=== PATIENT | female | born 1970 | race Caucasian/White ===

== ENCOUNTER 2024-12-22 08:55 | Outpatient (CLI) | payer BC, SELFPAY ==
--- NOTE | ~2024-12-22 | MM_ITS ---
EXAMINATION: MM screening homer BI w gloria HISTORY: Screening mammogram TECHNIQUE: Craniocaudal and mediolateral oblique 3-D tomosynthesis images were obtained and synthetic 2-D images were generated. CAD analysis was submitted and interpreted. COMPARISON: No prior mammogram is available for comparison at this institution. BREAST PARENCHYMAL COMPOSITION:Not Dense. There are scattered areas of fibroglandular density. FINDINGS: No suspicious mass, calcification, or architectural distortion are identified in either agatha ast to suggest malignancy. There has been no suspicious interval change. IMPRESSION: No mammographic evidence of malignancy. Recommend routine screening mammography in one year. BI-RADS Category 1: Negative Reviewed, dictated and finalized at location .
--- OUTSIDE RECORDS SUMMARY | 2024-12-22 09:05 | XMS_ITS | Data Portability ---
Author Organization [place] - [facility] [employer], Main Office Address [address] [place] [address] Care Team Providers Care Corporate Development Associate Name Role Phone DANTE CELIS Primary Care Provider [phone] DANTE CELIS Referring Provider Assessment Encounter Date Assessment Date Assessment LastModified by Organization Details LastModified Time 11/19/2022 11/19/2022 EKG shows a normal sinus rhythm with normal intervals no acute changes Medically optimized for surgery [email or web address] Not available 12/09/2022 18:29:12 01/23/2023 01/23/2023 Continue current therapy Weight reduction discussed Parking placard appropriate at least for 6 months and I will initiate that Return to clinic 6 months Blood work reviewed [email or web address] Not available 01/23/2023 11:51:57 07/17/2023 07/17/2023 Continue current therapy losartan check blood work rtc 4 month cpm [email or web address] Not available 07/19/2023 19:28:38 10/12/2024 10/12/2024 This note is dictated and transcribed by [employer] Fluency Direct Software. Process Line Operator variances may occur. Despite proofreading, typographical errors may occur. Occasional wrong-word or '[id number]-[id number]' substitutions may have occurred due to the inherent limitations of voice recording. Read the chart carefully and recognize, using context, where substitutions have occurred. [email or web address] Not available 10/12/2024 12:15:24 Plan of Treatment Reminders Order Date Submit Date Provider Last Modified By Organization Details Last Modified Time Details Appointments None recorded. Lab glycohemogl obin, total, blood 2022 023 [facility], [address] [place], [address], 3 16:18:04 lipid panel, serum 2022 023 [facility], [address] [place], [address], 3 17:56:16 CBC w/ auto diff 2022 023 [facility], [address] [place], [address], 3 15:06:22 CMP, serum or plasma 2022 023 [facility], [address] [place], [address], 3 17:56:11 CBC w/ auto diff 2022 023 [facility], [address] [place] [address], [address], 3 14:28:56 CMP, serum or plasma 2022 023 [facility], [address] [place], [address], 3 14:44:30 Referral None recorded. Procedures None recorded. Surgeries None recorded. Imaging electrocard iogram 2022 023 [email or web address] [facility] [address] [facility], [address], [place], [address], 3 12:59:32 Medication Orders amlodipine 5 mg tablet 2022 023 [email or web address] [facility]/Pharmacy #[id number], [address] , [place], [address], 3 13:58:16 alprazolam 0.5 mg tablet 2022 023 [facility]/Pharmacy #[id number], [address], [place], [address], 3 19:29:41 metoprolol tartrate 25 mg tablet 2022 023 [email or web address] [facility]/Pharmacy #[id number], [address], [place], [address], 3 13:58:16 venlafaxine 75 mg tablet 2022 023 [email or web address] [facility]/Pharmacy #[id number], [address], [place], [address], 3 13:58:16 Patient TargetsNo targets recorded. Patient Instructions Encounter Date Encounter Id Patient Instructions Last Modified By Organization Details Last Modified Time 10/12/2024 [id number] diabetes foot health: care instructions [email or web address] Not available 10/12/2024 12:16:50 hammertoe, claw toe, mallet toe handout [email or web address] Not available 10/12/2024 12:16:51 Reason for Referral None Reported. Results Created Date Observation Date Name Description Value Unit Range Abnormal Flag Note LastModifiedBy Organization Detail LastModifiedTime 08/08/20 22 08/08/2022 LIPID PANEL cholesterol 190 mg/dL 140-19 9 [facility] NSUS RECOM MENDA TION FOR REGINALDO STERO L: ADULT CHILD LOW RISK: <200 <170 BORDE RLINE : <200- 239 ----- HIGH RISK: >240 >200 Not Available [facility] (Lab) [address] [place], [address], 08/08/2022 15:01:47 08/08/20 22 08/08/2022 LIPID PANEL triglyceride s 132 mg/dL 0-150 [facility] NSUS REPOR T RECOM MENDA TION FOR TRIGL YCERI TATIANA: ADULT CHILD LOW RISK: <150 ----- BODER LINE: 150-1 99 ----- HIGH RISK: >200 ----- Not Available [facility] (Lab) [address] [place], [address], 08/08/2022 15:01:47 08/08/20 22 08/08/2022 LIPID PANEL HDL cholesterol 59 mg/dL 40- Not Available [facility] (Lab) [address] [place], [address], 08/08/2022 15:01:47 08/08/20 22 08/08/2022 LIPID PANEL LDL cholesterol, calculated 105 mg/dL 0-130 [facility] NSUS REPOR T RECOM MENDA TIONS FOR LDL: ADULT CHILD LOW RISK <130 <110 (OPTI MAL LDL) <100 ----- BORDE RLINE : 130-1 59 ----- HIGH RISK: >160 >130 A TRIGL YCERI DE RESUL T >400 INVAL IDATE S THE CALCU LATIO N FOR LDL FRACT IONAT ION - THE LDL RESUL T WILL NOT BE REPOR ARISTEO. Not Available [facility] (Lab) [address] [place], [address], 08/08/2022 15:01:47 08/08/20 22 08/08/2022 COMPR EHENS JIM METAB OLIC PANEL sodium 138 mmol/ L 137-14 5 Not Available [facility] (Lab) [address] [place], [address], 08/08/2022 15:01:45 08/08/20 22 08/08/2022 COMPR EHENS JIM METAB OLIC PANEL potassium 3.9 mmol/ L 3.5-5. 1 Not Available [facility] (Lab) [address] [place], [address], 08/08/2022 15:01:45 08/08/20 22 08/08/2022 COMPR EHENS JIM METAB OLIC PANEL chloride 102 mmol/ L 98-107 Not Available [facility] (Lab) [address] [place], [address], 08/08/2022 15:01:45 08/08/20 22 08/08/2022 COMPR EHENS JIM METAB OLIC PANEL carbon dioxide 29 mmol/ L 22-30 Not Available [facility] (Lab) [address] [place], [address], 08/08/2022 15:01:45 08/08/20 22 08/08/2022 COMPR EHENS JIM METAB OLIC PANEL anion gap 10.9 mmol/ L 14-22 low Not Available [facility] (Lab) [address] [place], [address], 08/08/2022 15:01:45 08/08/20 22 08/08/2022 COMPR EHENS JIM METAB OLIC PANEL glucose 85 mg/dL 70-99 Not Available [facility] (Lab) [address] [place], [address], 08/08/2022 15:01:45 08/08/20 22 08/08/2022 COMPR EHENS JIM METAB OLIC PANEL BUN 11 mg/dL 8-19 Not Available [facility] (Lab) [address] [place], [address], 08/08/2022 15:01:45 08/08/20 22 08/08/2022 COMPR EHENS JIM METAB OLIC PANEL creatinine 0.55 mg/dL 0.66-1 .25 low Not Available [facility] (Lab) [address] [place], [address], 08/08/2022 15:01:45 08/08/20 22 08/08/2022 COMPR EHENS JIM METAB OLIC PANEL GFR >60 Refer ence Range : [place] GFR Healt hy Adult : >60 mL/mi n/1.7 3 m2 Chron ic Kidne y Disea se: 15-60 mL/mi n/1.7 3 m2 Kidne y Failu re: <15/m L/min /1.73 m2 www.n iddk. nih.g ov The MDRD study equat ion has not been valid ated in child lavell <18 years of age; pregn ant women ; the elder ly >85 years of age; or in some racia l or ethni c subgr oups, such as Hispa nics. Outsi de the valid ated vinayak eters , estim ated GFR is less accur ate, requi ring clini jorge luis judgm ent on a case- by-ca se basis . Clini jorge luis inter preta tion for other races and ages must be made by the clini masoud. The MDRD study equat ion has not been valid ated for the evalu ation of serum creat inine relat ed to nutri vasquez l statu s or medic ation usage . For perso ns <18 years of age, a pedia tric GFR calcu lator is avail able on the [facility] websi te: https ://kadie w.kid vickie.o rg/pr ofess ional s/kdo qi/gf r_cal culat or Not Available [facility] (Lab) [address] [place], [address], 08/08/2022 15:01:45 08/08/20 22 08/08/2022 COMPR EHENS JIM METAB OLIC PANEL alkaline phosphatase 81 U/L 38-126 Not Available [facility] (Lab) [address] [place], [address], 08/08/2022 15:01:45 08/08/20 22 08/08/2022 COMPR EHENS JIM METAB OLIC PANEL alanine aminotransfe rase 22 U/L 0-35 Not Available [facility] (Lab) [address] [place], [address], 08/08/2022 15:01:45 08/08/20 22 08/08/2022 COMPR EHENS JIM METAB OLIC PANEL aspartate aminotransfe rase 23 U/L 15-37 Not Available [facility] (Lab) [address] [place], [address], 08/08/2022 15:01:45 08/08/20 22 08/08/2022 COMPR EHENS JIM METAB OLIC PANEL bilirubin, total 0.40 mg/dL 0.20-1 .30 Not Available [facility] (Lab) [address] [place], [address], 08/08/2022 15:01:45 08/08/20 22 08/08/2022 COMPR EHENS JIM METAB OLIC PANEL calcium 9.3 mg/dL 8.4-10 .2 Not Available [facility] (Lab) [address] [place], [address], 08/08/2022 15:01:45 08/08/20 22 08/08/2022 COMPR EHENS JIM METAB OLIC PANEL total protein 7.2 g/dL 6.3-8. 2 Not Available [facility] (Lab) [address] [place], [address], 08/08/2022 15:01:45 08/08/20 22 08/08/2022 COMPR EHENS JIM METAB OLIC PANEL albumin 4.1 g/dL 3.4-5. 0 Not Available [facility] (Lab) [address] [place], [address], 08/08/2022 15:01:45 08/08/20 22 08/08/2022 COMPR EHENS JIM METAB OLIC PANEL globulin 3.1 g/dL 2.6-4. 2 Not Available [facility] (Lab) [address] [place], [address], 08/08/2022 15:01:45 08/08/20 22 08/08/2022 COMPR EHENS JIM METAB OLIC PANEL A/G ratio 1.3 ratio 1.0-2. 0 Not Available [facility] (Lab) [address] [place], [address], 08/08/2022 15:01:45 08/08/20 22 08/08/2022 CBC/C OMPLE TE BLD COUNT W/DIF F white blood cells 8.7 x10'3 /uL 4.2-10 .8 Not Available [facility] (Lab) [address] [facility], [address], 08/08/2022 14:47:38 08/08/20 22 08/08/2022 CBC/C OMPLE TE BLD COUNT W/DIF F red blood cells 4.51 x10'6 /uL 3.80-5 .20 Not Available [facility] (Lab) [address] [place], [address], 08/08/2022 14:47:38 08/08/20 22 08/08/2022 CBC/C OMPLE TE BLD COUNT W/DIF F hemoglobin 12.3 g/dL 12.0-1 5.6 Not Available [facility] (Lab) [address] [place], [address], 08/08/2022 14:47:38 08/08/20 22 08/08/2022 CBC/C OMPLE TE BLD COUNT W/DIF F hematocrit 39.1 % 35.7-4 5.7 Not Available [facility] (Lab) [address] [place], [address], 08/08/2022 14:47:38 08/08/20 22 08/08/2022 CBC/C OMPLE TE BLD COUNT W/DIF F mean red cell volume 86.7 fL 82.0-9 9.0 Not Available [facility] (Lab) [address] [place], [address], 08/08/2022 14:47:38 08/08/20 22 08/08/2022 CBC/C OMPLE TE BLD COUNT W/DIF F mean red cell hemoglobin 27.3 pg 27.0-3 3.0 Not Available [facility] (Lab) [address] [place], [address], 08/08/2022 14:47:38 08/08/20 22 08/08/2022 CBC/C OMPLE TE BLD COUNT W/DIF F mean RBC HGB concentratio n 31.5 g/dL 31.0-3 6.0 Not Available [facility] (Lab) [address] [place], [address], 08/08/2022 14:47:38 08/08/20 22 08/08/2022 CBC/C OMPLE TE BLD COUNT W/DIF F red cell distribution width 14.1 % 11.8-1 5.5 Not Available [facility] (Lab) [address] [place], [address], 08/08/2022 14:47:38 08/08/20 22 08/08/2022 CBC/C OMPLE TE BLD COUNT W/DIF F platelets 333 x10'3 /uL 150-40 0 Not Available [facility] (Lab) [address] [place], [address], 08/08/2022 14:47:38 08/08/20 22 08/08/2022 CBC/C OMPLE TE BLD COUNT W/DIF F mean platelet volume 10.6 fL 9.0-12 .4 Not Available [facility] (Lab) [address] [place], [address], 08/08/2022 14:47:38 08/08/20 22 08/08/2022 CBC/C OMPLE TE BLD COUNT W/DIF F neutrophils 54.6 % 39.0-7 2.0 Not Available [facility] (Lab) [address] [place], [address], 08/08/2022 14:47:38 08/08/20 22 08/08/2022 CBC/C OMPLE TE BLD COUNT W/DIF F lymphocytes 35.3 % 16.0-4 7.0 Not Available [facility] (Lab) [address] [place], [address], 08/08/2022 14:47:38 08/08/20 22 08/08/2022 CBC/C OMPLE TE BLD COUNT W/DIF F monocytes 7.6 % 5.0-12 .0 Not Available [facility] (Lab) [address] [place], [address], 08/08/2022 14:47:38 08/08/20 22 08/08/2022 CBC/C OMPLE TE BLD COUNT W/DIF F eosinophils 1.9 % 1.0-7. 0 Not Available [facility] (Lab) [address] [place], [address], 08/08/2022 14:47:38 08/08/20 22 08/08/2022 CBC/C OMPLE TE BLD COUNT W/DIF F basophils 0.5 % 0.0-2. 0 Not Available [facility] (Lab) [address] [place], [address], 08/08/2022 14:47:38 08/08/20 22 08/08/2022 CBC/C OMPLE TE BLD COUNT W/DIF F immature granulocytes 0.1 % 0.00-0 .50 Not Available [facility] (Lab) [address] [place], [address], 08/08/2022 14:47:38 08/08/20 22 08/08/2022 CBC/C OMPLE TE BLD COUNT W/DIF F neutrophils, absolute count 4.76 x10'3 /uL 1.5-8. 0 Not Available [facility] (Lab) [address] [place], [address], 08/08/2022 14:47:38 08/08/20 22 08/08/2022 CBC/C OMPLE TE BLD COUNT W/DIF F lymphocytes, absolute count 3.08 x10'3 /uL 1.07-3 .43 Not Available [facility] (Lab) [address] [place], [address], 08/08/2022 14:47:38 08/08/20 22 08/08/2022 CBC/C OMPLE TE BLD COUNT W/DIF F monocytes, absolute count 0.66 x10'3 /uL 0.29-0 .99 Not Available [facility] (Lab) [address] [place], [address], 08/08/2022 14:47:38 08/08/20 22 08/08/2022 CBC/C OMPLE TE BLD COUNT W/DIF F eosinophils, absolute count 0.17 x10'3 /uL 0.02-0 .53 Not Available [facility] (Lab) [address] [place], [address], 08/08/2022 14:47:38 08/08/20 22 08/08/2022 CBC/C OMPLE TE BLD COUNT W/DIF F basophils, absolute count 0.04 x10'3 /uL 0.01-0 .08 Not Available [facility] (Lab) [address] [place], [address], 08/08/2022 14:47:38 08/08/20 22 08/08/2022 CBC/C OMPLE TE BLD COUNT W/DIF F immature granulocytes ,absolute 0.01 x10'3 /uL 0.00-0 .05 Not Available [facility] (Lab) [address] [place], [address], 08/08/2022 14:47:38 08/08/20 22 08/08/2022 CBC/C OMPLE TE BLD COUNT W/DIF F nucleated red blood cells 0.0 % -0 Not Available [facility] (Lab) [address] [place], [address], 08/08/2022 14:47:38 08/08/20 22 08/08/2022 CBC/C OMPLE TE BLD COUNT W/DIF F NRBC# 0.00 x10'3 /uL Not Available [facility] (Lab) [address] [place], [address], 08/08/2022 14:47:38 11/20/19 23 11/19/2022 CBC/C OMPLE TE BLD COUNT W/DIF F white blood cells 8.3 x10'3 /uL 4.2-10 .8 Not Available [facility] (Lab) [address] [place], [address], 11/19/2022 14:28:55 11/20/19 23 11/19/2022 CBC/C OMPLE TE BLD COUNT W/DIF F red blood cells 4.27 x10'6 /uL 3.80-5 .20 Not Available [facility] (Lab) [address] [place], [address], 11/19/2022 14:28:55 11/20/1911/19/2022 CBC/C OMPLE TE BLD COUNT W/DIF F hemoglobin 11.8 g/dL 12.0-1 5.6 low Not Available [facility] (Lab) [address] [facility] [place], [address], 11/19/2022 14:28:55 11/20/19 23 11/19/2022 CBC/C OMPLE TE BLD COUNT W/DIF F hematocrit 37.4 % 35.7-4 5.7 Not Available [facility] (Lab) [address] [place], [address], 11/19/2022 14:28:55 11/20/1911/19/2022 CBC/C OMPLE TE BLD COUNT W/DIF F mean red cell volume 87.6 fL 82.0-9 9.0 Not Available [facility] (Lab) [address] [place], [address], 11/19/2022 14:28:55 11/20/19 23 11/19/2022 CBC/C OMPLE TE BLD COUNT W/DIF F mean red cell hemoglobin 27.6 pg 27.0-3 3.0 Not Available [facility] (Lab) [address] [place], [address], 11/19/2022 14:28:55 11/20/19 23 11/19/2022 CBC/C OMPLE TE BLD COUNT W/DIF F mean RBC HGB concentratio n 31.6 g/dL 31.0-3 6.0 Not Available [facility] (Lab) [address] [place], [address], 11/19/2022 14:28:55 11/20/19 23 11/19/2022 CBC/C OMPLE TE BLD COUNT W/DIF F red cell distribution width 13.0 % 11.8-1 5.5 Not Available [facility] (Lab) [address] [place], [address], 11/19/2022 14:28:55 11/20/19 23 11/19/2022 CBC/C OMPLE TE BLD COUNT W/DIF F platelets 329 x10'3 /uL 150-40 0 Not Available [facility] (Lab) [address] [place], [address], 11/19/2022 14:28:55 11/20/1911/19/2022 CBC/C OMPLE TE BLD COUNT W/DIF F mean platelet volume 10.9 fL 9.0-12 .4 Not Available [facility] (Lab) [address] [place], [address], 11/19/2022 14:28:55 11/20/19 23 11/19/2022 CBC/C OMPLE TE BLD COUNT W/DIF F neutrophils 50.0 % 39.0-7 2.0 Not Available [facility] (Lab) [address] [place], [address], 11/19/2022 14:28:55 11/20/19 23 11/19/2022 CBC/C OMPLE TE BLD COUNT W/DIF F lymphocytes 38.2 % 16.0-4 7.0 Not Available [facility] (Lab) [address] [place], [address], 11/19/2022 14:28:55 11/20/1911/19/2022 CBC/C OMPLE TE BLD COUNT W/DIF F monocytes 7.6 % 5.0-12 .0 Not Available [facility] (Lab) [address] [place], [address], 11/19/2022 14:28:55 11/20/1911/19/2022 CBC/C OMPLE TE BLD COUNT W/DIF F eosinophils 3.2 % 1.0-7. 0 Not Available [facility] (Lab) [address] [place], [address], 11/19/2022 14:28:55 11/20/19 23 11/19/2022 CBC/C OMPLE TE BLD COUNT W/DIF F basophils 0.6 % 0.0-2. 0 Not Available [facility] (Lab) [address] [place], [address], 11/19/2022 14:28:55 11/20/1911/19/2022 CBC/C OMPLE TE BLD COUNT W/DIF F immature granulocytes 0.4 % 0.00-0 .50 Not Available [facility] (Lab) [address] [place], [address], 11/19/2022 14:28:55 11/20/1911/19/2022 CBC/C OMPLE TE BLD COUNT W/DIF F neutrophils, absolute count 4.13 x10'3 /uL 1.5-8. 0 Not Available [facility] (Lab) [address] [place], [address], 11/19/2022 14:28:55 11/20/19 23 11/19/2022 CBC/C OMPLE TE BLD COUNT W/DIF F lymphocytes, absolute count 3.15 x10'3 /uL 1.07-3 .43 Not Available [facility] (Lab) [address] [place], [address], 11/19/2022 14:28:55 11/20/1911/19/2022 CBC/C OMPLE TE BLD COUNT W/DIF F monocytes, absolute count 0.63 x10'3 /uL 0.29-0 .99 Not Available [facility] (Lab) [address] [place], [address], 11/19/2022 14:28:55 11/20/19 23 11/19/2022 CBC/C OMPLE TE BLD COUNT W/DIF F eosinophils, absolute count 0.26 x10'3 /uL 0.02-0 .53 Not Available [facility] (Lab) [address] [place], [address], 11/19/2022 14:28:55 11/20/19 23 11/19/2022 CBC/C OMPLE TE BLD COUNT W/DIF F basophils, absolute count 0.05 x10'3 /uL 0.01-0 .08 Not Available [facility] (Lab) [address] [place], [address], 11/19/2022 14:28:55 11/20/19 23 11/19/2022 CBC/C OMPLE TE BLD COUNT W/DIF F immature granulocytes ,absolute 0.03 x10'3 /uL 0.00-0 .05 Not Available [facility] (Lab) [address] [place], [address], 11/19/2022 14:28:55 11/20/19 23 11/19/2022 CBC/C OMPLE TE BLD COUNT W/DIF F nucleated red blood cells 0.0 % -0 Not Available [facility] (Lab) [address] [place], [address], 11/19/2022 14:28:55 11/20/19 23 11/19/2022 CBC/C OMPLE TE BLD COUNT W/DIF F NRBC# 0.00 x10'3 /uL Not Available [facility] (Lab) [address] [place], [address], 11/19/2022 14:28:55 11/20/19 23 11/19/2022 COMPR EHENS JIM METAB OLIC PANEL sodium 139 mmol/ L 137-14 5 Not Available [facility] (Lab) [address] [place], [address], 11/19/2022 14:44:30 11/20/19 23 11/19/2022 COMPR EHENS JIM METAB OLIC PANEL potassium 4.2 mmol/ L 3.5-5. 1 Not Available [facility] (Lab) [address] [place], [address], 11/19/2022 14:44:30 11/20/19 23 11/19/2022 COMPR EHENS JIM METAB OLIC PANEL chloride 103 mmol/ L 98-107 Not Available [facility] (Lab) [address] [place], [address], 11/19/2022 14:44:30 11/20/19 23 11/19/2022 COMPR EHENS JIM METAB OLIC PANEL carbon dioxide 30 mmol/ L 22-30 Not Available [facility] (Lab) [address] [place], [address], 11/19/2022 14:44:30 11/20/19 23 11/19/2022 COMPR EHENS JIM METAB OLIC PANEL anion gap 10.2 mmol/ L 14-22 low Not Available [facility] (Lab) [address] [place], [address], 11/19/2022 14:44:30 11/20/19 23 11/19/2022 COMPR EHENS JIM METAB OLIC PANEL glucose 88 mg/dL 70-99 Not Available [facility] (Lab) [address] [place], [address], 11/19/2022 14:44:30 11/20/19 23 11/19/2022 COMPR EHENS JIM METAB OLIC PANEL BUN 15 mg/dL 8-19 Not Available [facility] (Lab) [address] [place], [address], 11/19/2022 14:44:30 11/20/19 23 11/19/2022 COMPR EHENS JIM METAB OLIC PANEL creatinine 0.59 mg/dL 0.66-1 .25 low Not Available [facility] (Lab) [address], [place], [address], 11/19/2022 14:44:30 11/20/19 23 11/19/2022 COMPR EHENS JIM METAB OLIC PANEL GFR >60 Refer ence Range : [place] GFR Healt hy Adult : >60 mL/mi n/1.7 3 m2 Chron ic Kidne y Disea se: 15-60 mL/mi n/1.7 3 m2 Kidne y Failu re: <15/m L/min /1.73 m2 www.n iddk. nih.g ov The MDRD study equat ion has not been valid ated in child lavell <18 years of age; pregn ant women ; the elder ly >85 years of age; or in some racia l or ethni c subgr oups, such as [facility] nics. Outsi de the valid ated vinayak eters , estim ated GFR is less accur ate, requi ring clini jorge luis judgm ent on a case- by-ca se basis . Clini jorge luis inter preta tion for other races and ages must be made by the clini masoud. The MDRD study equat ion has not been valid ated for the evalu ation of serum creat inine relat ed to nutri vasquez l statu s or medic ation usage . For perso ns <18 years of age, a pedia tric GFR calcu lator is avail able on the F websi te: https ://kadie w.donavan johnston.o rg/pr ofess ional s/kdo qi/gf r_cal culat or Not Available [facility] (Lab) [address] [place], [address], 11/19/2022 14:44:30 11/20/19 23 11/19/2022 COMPR EHENS JIM METAB OLIC PANEL alkaline phosphatase 79 U/L 38-126 Not Available [facility] (Lab) [address] [place], [address], 11/19/2022 14:44:30 11/20/19 23 11/19/2022 COMPR EHENS JIM METAB OLIC PANEL alanine aminotransfe rase 26 U/L 0-35 Not Available [facility] (Lab) [address] [place], [address], 11/19/2022 14:44:30 11/20/19 23 11/19/2022 COMPR EHENS JIM METAB OLIC PANEL aspartate aminotransfe rase 31 U/L 15-37 Not Available [facility] (Lab) [address] [place], [address], 11/19/2022 14:44:30 11/20/19 23 11/19/2022 COMPR EHENS JIM METAB OLIC PANEL bilirubin, total 0.50 mg/dL 0.20-1 .30 Not Available [facility] (Lab) [address] [place], [address], 11/19/2022 14:44:30 11/20/19 23 11/19/2022 COMPR EHENS JIM METAB OLIC PANEL calcium 9.3 mg/dL 8.4-10 .2 Not Available [facility] (Lab) [address] [place], [address], 11/19/2022 14:44:30 11/20/19 23 11/19/2022 COMPR EHENS JIM METAB OLIC PANEL total protein 7.3 g/dL 6.3-8. 2 Not Available [facility] (Lab) [address] [place], [address], 11/19/2022 14:44:30 11/20/19 23 11/19/2022 COMPR EHENS JIM METAB OLIC PANEL albumin 4.1 g/dL 3.4-5. 0 Not Available [facility] (Lab) [address] [facility] [place], [address], 11/19/2022 14:44:30 11/20/19 23 11/19/2022 COMPR EHENS JIM METAB OLIC PANEL globulin 3.2 g/dL 2.6-4. 2 Not Available [facility] (Lab) [address] [place], [address], 11/19/2022 14:44:30 11/20/19 23 11/19/2022 COMPR EHENS JIM METAB OLIC PANEL A/G ratio 1.3 ratio 1.0-2. 0 Not Available [facility] (Lab) [address] [place], [address], 11/19/2022 14:44:30 01/03/20 23 01/02/2023 COLOG UARD cologuard result reportable NEGATI VE negati ve NEGAT JIM TEST RESUL T. A negat jim Colog uard resul t indic ates a low likel ihood that a color ectal cance r (CRC) or advan stephane adeno ma (ramos omato us polyp s with more advan stephane pre-m align ant featu res) is prese nt. The chanc e that a perso n with a negat jim Colog uard test has a color ectal cance r is less than 1 in 1500 (nega tive predi ctive value >99.9 %) or has an advan stephane adeno ma is less than 5.3% (nega tive predi ctive value 94.7% ). These data are based on a prosp ectiv e cross -sect ional study of 10,00 0 indiv idual s at [facility] risk for color ectal cance r who were [place] with both Colog uard and colon oscop y. (Víctor Sanchez al, N Engl J Med 2014; 370(1 4):12 86-12 97) The clotilde l value (refe rence range ) for this assay is negat jim. COLOG UARD RE-SC REENI NG RECOM MENDA TION: Perio dic color ectal cance r [place] is an impor tant part of preve ntive healt hcare for asymp tomat ic indiv idual s at [facility] risk for color ectal cance r. Follo wing a negat jim Colog uard resul t, the Ameri can Cance r Socie ty and [employer] -[employer] Task Force [place] guide lines recom mend a Colog uard re-sc reeni ng inter kami of 3 years . Refer ences : Ameri can Cance r Socie ty Guide line for Color ectal Cance r Scree carina: https ://kadie w.can cer.o rg/ca ncer/ colon -rect al-ca ncer/ detec tion- diagn osis- stagi ng/ac s-rec ommen datio ns.ht ml.; Bill DK, Ilda jarvis CR, Lynda CaoK, Color ectal Cance r Scree carina: Recom menda tions for Physi cians and Patie nts from the U.S. Multi -Soci ety Task Force on Color ectal Cance r Scree carina , Am Kiley blackntrichard rolog y 2017; 112:1 016-1 030. TEST DESCR IPTIO N: [place] site algor ithmi c christina sis of stool DNA-b iomar kers with hemog lobin immun oassa y. Quant itati ve value s of indiv idual bioma rkers are not repor table and are not assoc iated with indiv idual bioma rker resul t refer ence range s. Colog uard is inten ded for color ectal cance r scree carina of adult s of eithe r sex, 45 years or older , who are at [facility] for color ectal cance r (CRC) . Colog uard has been appro tacos for use by the [place]. FDA. The perfo rmanc e of Colog uard was estab lishe d in a cross secti onal study of [facility] adult s aged 50-84 . Colog uard perfo rmanc e in patie nts ages 45 to 49 years was estim ated by maria de jesus-[place] galicia christina sis of near- age group s. Colon oscop ies perfo rmed for a posit jim resul t may find as the most clini efrain signi fican t lesio n: color ectal cance r [4.0% ], advan stephane adeno ma (incl uding sessi le laurent aristeo polyp s great er than or equal to 1cm diame ter) [20%] or non- advan stephane adeno ma [31%] ; or no color ectal neopl blanca [45%] . These estim ates are deriv ed from a prosp ectiv e cross -sect ional scree carina study of 0 indiv idual s at [facility] risk for color ectal cance r who were [place] with both Colog uard and colon oscop y. (Víctor Lane et al, N Engl J Med 2014; 370(1 4):12 86-12 97.) Colog uard may produ ce a false negat jim or false posit jim resul t (no color ectal cance r or preca ncero us polyp prese nt at colon oscop y follo w up). A negat jim Colog uard test resul t does not guara ntee the absen ce of CRC or advan stephane adeno ma (pre- cance r). The curre nt Colog uard scree carina inter kami is every 3 years . (Amer ican Cance r Socie ty and U.S. Multi -Soci ety Task Force ). Colog uard perfo rmanc e data in a 0 patie nt pivot al study using colon oscop y as the refer ence metho d can be acces sed at the follo wing locat ion: www.e xactl abs.c om/re sults . Addit ional descr iptio n of the Colog uard test proce ss, warni ngs and preca ution s can be found at www.c ologu sandi.august om. Not Available [facility] (Cologuard Orders Only) [address], [place], [address], 01/11/2023 18:28:02 07/17/20 23 07/17/2023 CBC/C OMPLE TE BLD COUNT W/DIF F white blood cells 7.0 x10'3 /uL 4.2-10 .8 Not Available [facility] (Lab) [address] [place], [address], 07/17/2023 15:06:22 07/17/20 23 07/17/2023 CBC/C OMPLE TE BLD COUNT W/DIF F red blood cells 4.52 x10'6 /uL 3.80-5 .20 Not Available [facility] (Lab) [address] [place], [address], 07/17/2023 15:06:22 07/17/20 23 07/17/2023 CBC/C OMPLE TE BLD COUNT W/DIF F hemoglobin 12.0 g/dL 12.0-1 5.6 Not Available [facility] (Lab) [address] [place], [address], 07/17/2023 15:06:22 07/17/20 23 07/17/2023 CBC/C OMPLE TE BLD COUNT W/DIF F hematocrit 39.0 % 35.7-4 5.7 Not Available [facility] (Lab) [address] [place], [address], 07/17/2023 15:06:22 07/17/20 23 07/17/2023 CBC/C OMPLE TE BLD COUNT W/DIF F mean red cell volume 86.3 fL 82.0-9 9.0 Not Available [facility] (Lab) [address] [place], [address], 07/17/2023 15:06:22 07/17/20 23 07/17/2023 CBC/C OMPLE TE BLD COUNT W/DIF F mean red cell hemoglobin 26.5 pg 27.0-3 3.0 low Not Available [facility] (Lab) [address] [place], [address], 07/17/2023 15:06:22 07/17/20 23 07/17/2023 CBC/C OMPLE TE BLD COUNT W/DIF F mean RBC HGB concentratio n 30.8 g/dL 31.0-3 6.0 low Not Available [facility] (Lab) [address] [place], [address], 07/17/2023 15:06:22 07/17/20 23 07/17/2023 CBC/C OMPLE TE BLD COUNT W/DIF F red cell distribution width 13.7 % 11.8-1 5.5 Not Available [facility] (Lab) [address] [place], [address], 07/17/2023 15:06:22 07/17/20 23 07/17/2023 CBC/C OMPLE TE BLD COUNT W/DIF F platelets 327 x10'3 /uL 150-40 0 Not Available [facility] (Lab) [address] [place], [address], 07/17/2023 15:06:22 07/17/20 23 07/17/2023 CBC/C OMPLE TE BLD COUNT W/DIF F mean platelet volume 11.4 fL 9.0-12 .4 Not Available [facility] (Lab) [address] [place], [address], 07/17/2023 15:06:22 07/17/20 23 07/17/2023 CBC/C OMPLE TE BLD COUNT W/DIF F neutrophils 46.0 % 39.0-7 2.0 Not Available [facility] (Lab) [address] [place], [address], 07/17/2023 15:06:22 07/17/20 23 07/17/2023 CBC/C OMPLE TE BLD COUNT W/DIF F lymphocytes 43.2 % 16.0-4 7.0 Not Available [facility] (Lab) [address] [place], [address], 07/17/2023 15:06:22 07/17/20 23 07/17/2023 CBC/C OMPLE TE BLD COUNT W/DIF F monocytes 7.5 % 5.0-12 .0 Not Available [facility] (Lab) [address] [place], [address], 07/17/2023 15:06:22 07/17/20 23 07/17/2023 CBC/C OMPLE TE BLD COUNT W/DIF F eosinophils 2.6 % 1.0-7. 0 Not Available [facility] (Lab) [address] [place], [address], 07/17/2023 15:06:22 07/17/20 23 07/17/2023 CBC/C OMPLE TE BLD COUNT W/DIF F basophils 0.6 % 0.0-2. 0 Not Available [facility] (Lab) [address] [place], [address], 07/17/2023 15:06:22 07/17/20 23 07/17/2023 CBC/C OMPLE TE BLD COUNT W/DIF F immature granulocytes 0.1 % 0.00-0 .50 Not Available [facility] (Lab) [address] [place], [address], 07/17/2023 15:06:22 07/17/20 23 07/17/2023 CBC/C OMPLE TE BLD COUNT W/DIF F neutrophils, absolute count 3.24 x10'3 /uL 1.5-8. 0 Not Available [facility] (Lab) [address] [place], [address], 07/17/2023 15:06:22 07/17/20 23 07/17/2023 CBC/C OMPLE TE BLD COUNT W/DIF F lymphocytes, absolute count 3.04 x10'3 /uL 1.07-3 .43 Not Available [facility] (Lab) [address] [place], [address], 07/17/2023 15:06:22 07/17/20 23 07/17/2023 CBC/C OMPLE TE BLD COUNT W/DIF F monocytes, absolute count 0.53 x10'3 /uL 0.29-0 .99 Not Available [facility] (Lab) [address] [place], [address], 07/17/2023 15:06:22 07/17/20 23 07/17/2023 CBC/C OMPLE TE BLD COUNT W/DIF F eosinophils, absolute count 0.18 x10'3 /uL 0.02-0 .53 Not Available [facility] (Lab) [address] [place], [address], 07/17/2023 15:06:22 07/17/20 23 07/17/2023 CBC/C OMPLE TE BLD COUNT W/DIF F basophils, absolute count 0.04 x10'3 /uL 0.01-0 .08 Not Available [facility] (Lab) [address] [place], [address], 07/17/2023 15:06:22 07/17/20 23 07/17/2023 CBC/C OMPLE TE BLD COUNT W/DIF F immature granulocytes ,absolute 0.01 x10'3 /uL 0.00-0 .05 Not Available [facility] (Lab) [address] [place], [address], 07/17/2023 15:06:22 07/17/20 23 07/17/2023 CBC/C OMPLE TE BLD COUNT W/DIF F nucleated red blood cells 0.0 % -0 Not Available [facility] (Lab) [address] [place], [address], 07/17/2023 15:06:22 07/17/20 23 07/17/2023 CBC/C OMPLE TE BLD COUNT W/DIF F NRBC# 0.00 x10'3 /uL Not Available [facility] (Lab) [address] [place], [address], 07/17/2023 15:06:22 07/17/20 23 07/17/2023 HEMOG LOBIN A1C HA1C 5.6 % 4.0-6. 0 Diabe silverio Scree carina Crite samia: <5.7% Consi stent with absen ce of diabe silverio 5.7-6 .4% Consi stent with incre ased risk for diabe silverio (pred iabet es) >OR=6 .5% Consi stent with diabe silverio REFER ENCE: Diabe silverio Care 2016, 39(Gunn ppl.1 ):s13 -s22 Not Available [facility] (Lab) [address] [place], [address], 07/17/2023 16:18:04 07/17/20 23 07/17/2023 COMPR EHENS JIM METAB OLIC PANEL sodium 138 mmol/ L 137-14 5 Not Available [facility] (Lab) [address] [place], [address], 07/17/2023 17:56:11 07/17/20 23 07/17/2023 COMPR EHENS JIM METAB OLIC PANEL potassium 4.6 mmol/ L 3.5-5. 1 Not Available [facility] (Lab) [address] [place], [address], 07/17/2023 17:56:11 07/17/20 23 07/17/2023 COMPR EHENS JIM METAB OLIC PANEL chloride 102 mmol/ L 98-107 Not Available [facility] (Lab) [address] [place], [address], 07/17/2023 17:56:11 07/17/20 23 07/17/2023 COMPR EHENS JIM METAB OLIC PANEL carbon dioxide 29 mmol/ L 22-30 Not Available [facility] (Lab) [address] [place], [address], 07/17/2023 17:56:11 07/17/20 23 07/17/2023 COMPR EHENS JIM METAB OLIC PANEL anion gap 11.6 mmol/ L 14-22 low Not Available [facility] (Lab) [address] [place], [address], 07/17/2023 17:56:11 07/17/20 23 07/17/2023 COMPR EHENS JIM METAB OLIC PANEL glucose 100 mg/dL 70-99 high Not Available [facility] (Lab) [address] [place], [address], 07/17/2023 17:56:11 07/17/20 23 07/17/2023 COMPR EHENS JIM METAB OLIC PANEL BUN 15 mg/dL 8-19 Not Available [facility] (Lab) [address] [place], [address], 07/17/2023 17:56:11 07/17/20 23 07/17/2023 COMPR EHENS JIM METAB OLIC PANEL creatinine 0.60 mg/dL 0.66-1 .25 low Not Available [facility] (Lab) [address] [place], [address], 07/17/2023 17:56:11 07/17/20 23 07/17/2023 COMPR EHENS JIM METAB OLIC PANEL GFR >60 Refer ence Range : [place] ge GFR Healt hy Adult : >60 mL/mi n/1.7 3 m2 Chron ic Kidne y Disea se: 15-60 mL/mi n/1.7 3 m2 Kidne y Failu re: <15/m L/min /1.73 m2 www.n iddk. nih.g ov The MDRD study equat ion has not been valid ated in child lavell <18 years of age; pregn ant women ; the elder ly >85 years of age; or in some racia l or ethni c subgr oups, such as Edelmira nics. Outsi de the valid ated vinayak eters , estim ated GFR is less accur ate, requi ring clini jorge luis judgm ent on a case- by-ca se basis . Clini jorge luis inter preta tion for other races and ages must be made by the clini masoud. The MDRD study equat ion has not been valid ated for the evalu ation of serum creat inine relat ed to nutri vasquez l statu s or medic ation usage . For perso ns <18 years of age, a pedia tric GFR calcu lator is avail able on the [facility] websi te: https ://kadie oreilly.donavan johnston.o rg/pr ofess ional s/kdo qi/gf r_cal culat or Not Available [facility] (Lab) [address] [place], [address], 07/17/2023 17:56:11 07/17/20 23 07/17/2023 COMPR EHENS JIM METAB OLIC PANEL alkaline phosphatase 91 U/L 38-126 Not Available [facility] (Lab) [address] [place], [address], 07/17/2023 17:56:11 07/17/20 23 07/17/2023 COMPR EHENS JIM METAB OLIC PANEL alanine aminotransfe rase 20 U/L 0-35 Not Available [facility] (Lab) [address] [place], [address], 07/17/2023 17:56:11 07/17/20 23 07/17/2023 COMPR EHENS JIM METAB OLIC PANEL aspartate aminotransfe rase 31 U/L 15-37 Not Available [facility] (Lab) [address] [place], [address], 07/17/2023 17:56:11 07/17/20 23 07/17/2023 COMPR EHENS JIM METAB OLIC PANEL bilirubin, total 0.40 mg/dL 0.20-1 .30 Not Available [facility] (Lab) [address] [place], [address], 07/17/2023 17:56:11 07/17/20 23 07/17/2023 COMPR EHENS JIM METAB OLIC PANEL calcium 9.7 mg/dL 8.4-10 .2 Not Available [facility] (Lab) [address] [place], [address], 07/17/2023 17:56:11 07/17/20 23 07/17/2023 COMPR EHENS JIM METAB OLIC PANEL total protein 7.7 g/dL 6.3-8. 2 Not Available [facility] (Lab) [address] [place], [address], 07/17/2023 17:56:11 07/17/20 23 07/17/2023 COMPR EHENS JIM METAB OLIC PANEL albumin 4.1 g/dL 3.4-5. 0 Not Available [facility] (Lab) [address] [place], [address], 07/17/2023 17:56:11 07/17/20 23 07/17/2023 COMPR EHENS JIM METAB OLIC PANEL globulin 3.6 g/dL 2.6-4. 2 Not Available [facility] (Lab) [address] [place], [address], 07/17/2023 17:56:11 07/17/20 23 07/17/2023 COMPR EHENS JIM METAB OLIC PANEL A/G ratio 1.1 ratio 1.0-2. 0 Not Available [facility] (Lab) [address] [place], [address], 07/17/2023 17:56:11 07/17/20 23 07/17/2023 LIPID PANEL cholesterol 226 mg/dL 140-19 9 high [facility] NSUS RECOM MENDA TION FOR REGINALDO STERO L: ADULT CHILD LOW RISK: <200 <170 BORDE RLINE : <200- 239 ----- HIGH RISK: >240 >200 Not Available [facility] (Lab) [address] [place], [address], 07/17/2023 17:56:16 07/17/20 23 07/17/2023 LIPID PANEL triglyceride s 147 mg/dL 0-150 [facility] EM[facility] NSUS REPOR T RECOM MENDA TION FOR TRIGL YCERI TATIANA: ADULT CHILD LOW RISK: <150 ----- BODER LINE: 150-1 99 ----- HIGH RISK: >200 ----- Not Available [facility] (Lab) [address] [place], [address], 07/17/2023 17:56:16 07/17/20 23 07/17/2023 LIPID PANEL HDL cholesterol 48 mg/dL 40- Not Available [facility] (Lab) [address] [place], [address], 07/17/2023 17:56:16 07/17/20 23 07/17/2023 LIPID PANEL LDL cholesterol, calculated 149 mg/dL 0-130 high [facility] NSUS REPOR T RECOM MENDA TIONS FOR LDL: ADULT CHILD LOW RISK <130 <110 (OPTI MAL LDL) <100 ----- BORDE RLINE : 130-1 59 ----- HIGH RISK: >160 >130 A TRIGL YCERI DE RESUL T >400 INVAL IDATE S THE CALCU LATIO N FOR LDL FRACT IONAT ION - THE LDL RESUL T WILL NOT BE REPOR ARISTEO. Not Available [facility] (Lab) [address] [place], [address], 07/17/2023 17:56:16 08/08/20 22 08/08/2022 elect peter grimes am No observ ation record ed. [id number] [facility] [address], [place], [address], 10/10/2022 06:08:16 08/08/20 [facility] No observ ation record ed. [id number] [facility] [address], [place], [address], 10/10/2022 06:08:16 11/20/19 23 [facility] No observ ation record ed. [email or web address] [facility] Internal [facility] [address], [place], [address], 11/19/2022 12:02:46 11/20/19 23 11/19/2022 [facility] am No observ ation record ed. BARCODE [facility] Internal Med [facility] [address], [place], [address], 11/19/2022 17:12:23 Result Notes None recorded. Problems Name Problem SNOMED Code Status Onset Date Resolution Date Notes Provider Name and Address Organization Details Recorded Time Insomnia 292898899 Active Not Available [facility] 3 07:49:05 Pain in buttock 140595675 Active 2021 Not Available [facility] 3 07:49:05 Vitamin D deficiency 10407159 Active Not Available [facility] 3 07:49:05 Dyslipidemia 381989215 Active Not Available [facility] 3 07:49:05 Type 2 diabetes mellitus 11229256 Active Not Available [facility] 3 07:49:05 Anxiety 55386277 Active Not Available [facility] 3 07:49:05 Essential hypertension 86561838 Active Not Available [facility] 3 07:49:05 Vaginitis 80490729 Active 2022 Not Available [facility] 3 07:49:05 Fatigue 08875597 Active 2022 Not Available [facility] 3 07:49:05 Hypercholeste rolemia 98920841 Active 2023 Hillary Ortez RN [facility], [facility] 4 16:47:48 Hammer toe 839445424 Active 2024 Wayne Capellan DPM [address], [place], [address] , [facility] [employer] 5 12:16:15 Problem Notes None recorded. Procedures Surgical History Date Name Laterality Status Provider Name and Address Organization Details Recorded Time Gastric Bypass completed Not Available [facility] 10/10/2022 05:56:43 completed Not Available [facility] 0 10/10/2022 05:56:43 Hysterectomy completed [facility] 10/10/2022 05:56:43 tonsilectomy/ramos oids completed Not Available [facility] 10/10/2022 05:56:43 Hip surgery completed Gabbie Siegel [employer] 10/12/2024 11:36:22 Imaging Results Imaging Date Name Status LastModified by Organization Details LastModified Time 08/08/2022 electrocardiogram completed MIGRATION. [id number] [facility] [address], [place], [address], 10/10/2022 06:08:16 08/08/2022 electrocardiogram completed MIGRATION. [id number] [facility] [address], [place], [address], 10/10/2022 06:08:16 11/19/2022 electrocardiogram completed [email or web address] [facility] [address], [place], [address], 11/19/2022 12:02:46 11/19/2022 electrocardiogram completed BARCODE [facility] [address], [place], [address], 11/19/2022 17:12:23 Procedure Notes None recorded. Medical Equipment None Reported. Allergies Allergen ID Allergen Name Allergen Category Reaction Reaction Severity Criticality Documentation Date Start Date Code Code System Note Provider Name and Address Organization Details Recorded Time 22299 atorvasta tin medicatio n Not available Not available Not available 10/12/2024 78212 RxNorm Gabbie fox, [facility] [employer] [facility] 5 11:32:57 11219 watermelo n preparati on food Not available Not available Not available 10/12/2024 34327 4 RxNorm Gabbie fox, [facility] [employer] [facility] [employer] 5 11:33:06 Medications Name Sig Start Date Stop Date Status Note LastModified by Organization Details LastModified Time celecoxib 200 mg capsule TAKE 1 CAPSULE BY MOUTH EVERY DAY NEEDED FOR PAIN active Not Available Not Available No t Available fluoxetine 40 mg capsule Take 1 capsule by mouth once daily active Not Available Not Available No t Available amoxicillin 500 mg capsule TAKE 4 CAPSULES BY MOUTH 1 HOUR PRIOR TO DENTAL APPOINTME NT active Not Available Not Available No t Available venlafaxine 75 mg tablet TAKE 1 TABLET BY MOUTH EVERY DAY active Not Available Not Available No t Available tizanidine 2 mg tablet TAKE 1 TABLET BY MOUTH TWICE A DAY NEEDED FOR MUSCLE SPASM active Not Available Not Available No t Available citalopram 40 mg tablet one tablet qd 02/01 completed Not Available Not Available Not Available atorvastati n 10 mg tablet TAKE 1 TABLET BY MOUTH EVERY DAY active Not Available Not Available No t Available azithromyci n 250 mg tablet TAKE 2 TABLETS BY MOUTH TODAY, THEN TAKE 1 TABLET DAILY FOR 4 DAYS DIRECTED active Not Available Not Available No t Available tizanidine 4 mg tablet Take 1 tablet twice a day by oral route as needed. 01/23 completed Not Available Not Available Not Available fluconazole 150 mg tablet TAKE 1 TABLET BY MOUTH 01/23 completed Not Available Not Available Not Available citalopram 10 mg tablet one tablet qd 02/01 completed Not Available Not Available Not Available hydrocodone 5 mg-acetamin ophen 325 mg tablet TAKE 1 TABLET BY MOUTH EVERY 6 HOURS NEEDED FOR PAIN. 11/06 completed Not Available Not Available Not Available ondansetron HCl 4 mg tablet TAKE 1 TABLET NEEDED BY ORAL ROUTE IN THE MORNING FOR 10 DAYS. active Not Available Not Available No t Available acetaminoph en 300 mg-codeine 30 mg tablet TAKE 1-2 TABLETS BY MOUTH EVERY 4-6 HOURS, NO MORE THAN 10/DAY active Not Available Not Available No t Available amlodipine 5 mg tablet TAKE 1 TABLET BY MOUTH EVERY DAY active Not Available Not Available No t Available hydrocodone 10 mg-acetamin ophen 325 mg tablet TAKE 1-2 TABLETS BY MOUTH EVERY 6-8 HOURS NEEDED. MAX 6 TABS/DAY 07/17 completed Not Available Not Available Not Available alprazolam 0.5 mg tablet TAKE 1 TABLET BY MOUTH TWICE A DAY active Not Available Not Available No t Available oxycodone-a cetaminophe n 10 mg-325 mg tablet TAKE 1-2 TABLETS BY MOUTH EVERY 6-8 HOURS NEEDED FOR 7 DAYS MAX 6 TABLETS/2 4 HOURS 01/23 completed Not Available Not Available Not Available OneTouch Ultra Test strips Take 1 strip every day by miscell. route as directed for 100 days. 11/06 completed Not Available Not Available Not Available benzonatate 100 mg capsule TAKE 1 CAPSULE BY MOUTH THREE TIMES A DAY NEEDED FOR COUGH FOR 10 DAYS 11/06 completed Not Available Not Available Not Available Bleph-10 10 % eye drops INSTILL 3 DROP INTO AFFECTED EYE(S) BY OPHTHALMI C ROUTE THREE TIMES DAILY*NO CONTACTS* * 11/03 completed Not Available Not Available Not Available hydrocodone 7.5 mg-acetamin ophen 325 mg tablet Take 1 tablet every 6 hours by oral route as needed. 11/19 completed Not Available Not Available Not Available cephalexin 500 mg capsule 02/01 completed Not Available Not Available Not Available venlafaxine 37.5 mg tablet Take 1 tablet every day by oral route. active Not Available Not Available No t Available gabapentin 100 mg capsule TAKE 1 CAPSULE BY MOUTH EVERYDAY AT BEDTIME active Not Available Not Available No t Available ergocalcife rol (vitamin D2) 1,250 mcg (50,000 unit) capsule Take 1 capsule every week by oral route. 10/04 completed Not Available Not Available Not Available methylpredn isolone 4 mg tablets in a dose pack TAKE 6 TABLETS ON DAY 1 DIRECTED ON PACKAGE AND DECREASE BY 1 TAB EACH DAY FOR A TOTAL OF 6 DAYS 08/08 completed Not Available Not Available Not Available celecoxib 100 mg capsule TAKE 1 CAPSULE BY MOUTH EVERY DAY WITH FOOD FOR 30 DAYS active Not Available Not Available No t Available amoxicillin 875 mg-potassiu m clavulanate 125 mg tablet TAKE 1 TABLET BY MOUTH EVERY 12 HOURS UNTIL GONE 11/06 completed Not Available Not Available Not Available escitalopra m 20 mg tablet Take 1 tablet every day by oral route as directed for 30 days. 10/04 completed Not Available Not Available Not Available ezetimibe 10 mg tablet TAKE 1 TABLET BY MOUTH EVERY DAY active Not Available Not Available No t Available metoprolol tartrate 25 mg tablet TAKE 1 TABLET BY MOUTH TWICE A DAY active Not Available Not Available No t Available multivitami n 2021 active Not Available Not Available Not Avai lable Bystolic 10 mg tablet Take 1 tablet every day by oral route. 10/04 completed Not Available Not Available Not Available B12 2021 active Not Available Not Available Not Avai lable Ozempic 1 mg/dose (4 mg/3 mL) subcutaneou s pen injector INJECT 1 MG SUBCUTANE OUSLY WEEKLY active Not Available Not Available No t Available BinaxNOW COVID-19 Ag Self Test kit TEST DIRECTED TODAY 04/30 completed Not Available Not Available Not Available Ozempic 2 mg/dose (8 mg/3 mL) subcutaneou s pen injector INJECT 2 MG EVERY WEEK BY SUBCUTANE OUS ROUTE. active Not Available Not Available No t Available Ozempic 0.25 mg or 0.5 mg (2 mg/3 mL) subcutaneou s pen injector INJECT 0.5MG UNDER THE SKIN ONCE WEEKLY FOR 4 WEEKS active Not Available Not Available No t Available Vitals Date Recorded Body mass index (BMI) Body height Oxygen saturation Oxygen saturation in Arterial blood by Pulse oximetry Heart rate Body temperature Body weight Systolic blood pressure Diastolic blood pressure Provider Name and Address Organization Details Last Updated DateTime 3 43.2 kg/m2 172.72 cm 97 % 97 % 78 /min 98 [degF] 809699. 23 g 136 mm[Hg] 90 mm[Hg] Not Available [facility] 3 06:01:09 Date Recorded Body height Body mass index (BMI) Body weight Body temperature Heart rate Systolic blood pressure Diastolic blood pressure Provider Name and Address Organization Details Last Updated DateTime 3 172.72 cm 44.6 kg/m2 962220. 56 g 98.5 [degF] 69 /min 140 mm[Hg] 78 mm[Hg] Hillary tejada RN [facility] 3 11:44:12 Date Recorded Body height Body mass index (BMI) Body weight Body temperature Heart rate Oxygen saturation Oxygen saturation in Arterial blood by Pulse oximetry Systolic blood pressure Diastolic blood pressure Provider Name and Address Organization Details Last Updated DateTime 3 172.72 cm 42.7 kg/m2 961605. 46 g 97.8 [degF] 77 /min 98 % 98 % 138 mm[Hg] 96 mm[Hg] Deanna Castillo RN [facility] 3 11:05:21 Date Recorded Body height Body mass index (BMI) Body weight Body temperature Heart rate Systolic blood pressure Diastolic blood pressure Provider Name and Address Organization Details Last Updated DateTime 3 172.72 cm 43.9 kg/m2 073737. 19 g 97.6 [degF] 74 /min 144 mm[Hg] 98 mm[Hg] ROSMERY Abel [facility] 3 12:15:36 Date Recorded Body height Body mass index (BMI) Body weight Heart rate Respiratory rate Oxygen saturation Oxygen saturation in Arterial blood by Pulse oximetry Systolic blood pressure Diastolic blood pressure Provider Name and Address Organization Details Last Updated DateTime 5 177.8 cm 35.9 kg/m2 970849. 09 g 84 /min 14 /min 99 % 99 % 141 mm[Hg] 113 mm[Hg] Gabbie Mcfadden [facility] 5 11:21:55 Social History Question Answer Notes LastModified by Organization Details LastModified Time Tobacco Smoking Status Former Smoker quit 2007 G[place], [facility] 11/19/2022 11:25:10 Do You Have An Advance Directive? No [id number] Information not available 10/10/2022 What Is Your Level Of Caffeine Consumption? Moderate [id number].030 [id number] Information not available 10/10/2022 In The 14 Days Before Symptom Onset, Have You Had Close Contact With A Laboratory-confi rmed COVID-19 While That Case Was Ill? No Information not available 11/19/2022 In The 14 Days Before Symptom Onset, Have You Had Close Contact With A Person Who Is Under Investigation For COVID-19 While That Person Was Ill? No Information not available 11/19/2022 What Type Of Diet Are You Following? REGULAR [id number] Information not available 10/10/2022 What Is The Highest Grade Or Level Of School You Have Completed Or The Highest Degree You Have Received? IQ31161-3 Information not available 11/19/2022 Have There Been Any Changes To Your Family Or Social Situation? No Information not available 11/19/2022 What Is The Fluoride Status Of Your Home? Unknown Information not available 11/19/2022 When Did You Quit Smoking? 11-15yearssincelast cigarette Information not available 11/19/2022 Are There Any Guns Present In Your Home? Yes Kept In Safe Information not available 11/19/2022 Do You Use Insect Repellent Routinely? No Information not available 11/19/2022 Where Do You Live? SingleLevelHouse Information not available 11/19/2022 Do You Have A Medical Power Of Physician Practice Coordinator? No Information not available 11/19/2022 What Was The Date Of Your Most Recent Tobacco Screening? 10/12/2024 Information not available 10/12/2024 Do You Have Any Pets? Yes Information not available 11/19/2022 What Is Your Relationship Status? [id number].030 [id number] Information not available 10/10/2022 Do You Use Your Seat Belt Or Car Seat Routinely? Yes Information not available 11/19/2022 Do You Have Smoke And Carbon Monoxide Detectors In Your Home? Yes Information not available 11/19/2022 Are You Passively Exposed To Smoke? No Information not available 11/19/2022 Are There Any Smokers In Your House? No Information not available 11/19/2022 What Types Of Sporting Activities Do You Participate In? None Information not available 11/19/2022 Do You Use Sunscreen Routinely? Yes Information not available 11/19/2022 Has Tobacco Cessation Counseling Been Provided? No Information not available 11/19/2022 Have You Recently Traveled Abroad? No Information not available 11/19/2022 Do You Have Any Dietary Restrictions? No Information not available 11/19/2022 Sex: Female Functional Status Question Answer Note LastModified by Organizat ion Details LastModified Time Do you use any illicit or recreational drugs? No Information not available 11/19/2022 Do you or have you ever used any other forms of tobacco or nicotine? No Information not available 11/19/2022 What is your level of alcohol consumption? None [id number] Information not available 10/10/2022 What is your exercise level? Occasional [id number] Information not available 10/10/2022 Mental Status Question Answer Note LastModified by Organization D etails LastModified Time Do you feel stressed (tense, restless, nervous, or anxious, or unable to sleep at night)? [id number] Information not available 11/19/2022 Family History Relationship Description Onset Age of this Age Resolved Age Notes LastModified by Organization Details LastModified Time Mother Essential hypertension [id number] Not available 10/10/2022 05:56:47 Father Essential hypertension MIGRATION.593 [id number] Not available 10/10/2022 05:56:47 Father Myelodysplas tic syndrome (clinical) deceas ed [id number].346 [id number] Not available 10/10/2022 05:56:47 Father Diabetes mellitus Not available 2024 11:34:59 Father Arthritis Not available 10/12/2024 11:35:18 Father Hypertensive disorder Not available 2024 11:35:44 Maternal Aunt Diabetes mellitus Not available 2024 11:34:59 Paternal Aunt Diabetes mellitus Not available 2024 11:34:59 Maternal Uncle Diabetes mellitus Not available 2024 11:34:59 Paternal Uncle Diabetes mellitus Not available 2024 11:34:59 Son Diabetes mellitus Not available 2024 11:34:59 Brother Diabetes mellitus Not available 2024 11:34:59 Mother Arthritis Not available 10/12/2024 11:35:18 Mother Hypertensive disorder Not available 2024 11:35:44 Maternal Grandmother Arthritis Not available 10/2024 11:35:18 Maternal Grandfather Arthritis Not available 10/2024 11:35:18 Unspecified Relation Hypertensive disorder Not available 2024 11:35:44 Unspecified Relation Hypertensive disorder Not available 2024 11:35:44 Medical History Condition Response NERVE DISEASE N BLINDNESS N RHEUMATIC FEVER N KIDNEY STONES N BLADDER PROBLEMS N MRSA N OTHER # 1 N POLIO N LUNG DISEASE/DISORDER N HISTORY OF DRUG ABUSE N RADIATION / CHEMOTHERAPY N COPD N Other # 2 N BLOOD DISEASES N EAR OR HEARING PROBLEMS N MUMPS N SHINGLES N BOWEL PROBLEMS N DEPRESSION (INCLUDING POST ) Y STROKE/TIA N ULCERS N BENIGN PROSTATIC HYPERPLASIA N MEASLES N HYPOTENSION N MYOCARDIAL INFARCTION N OBESITY Y GERD/NAUSEA N ANEURYSM N URINARY/BLADDER/KIDNEY PROBLEMS N CORONARY ARTERY DISEASE (CAD) N ADDICTION CONCERNS N ENDOMETRIOSIS N Impotence N USE OF BLOOD THINNERS N SKIN PROBLEMS N GASTROINTESTINAL DISORDER N PERIPHERAL VASCULAR DISEASE N MUSCLE,JOINT OR BONE PROBLEMS N GASTROINTESTINAL BLEEDING N BLOOD CLOTS N ASTHMA N CATARACTS N ERECTILE DYSFUNCTION N VARICOSITIES N GI PROBLEMS N Low Testosterone N INFERTILITY N AIDS/HIV N CHEMOTHERAPY / RADIATION N LIVER DISEASE N MALE HYPOGONADISM N HYPERTENSION Y Deficiency Y TOURETTE'S N ANXIETY DISORDER Y BLOOD TRANSFUSION N ANEMIA/BLOOD DISORDER N CHRONIC EAR INFECTIONS N BRONCHITIS Y TUBERCULOSIS N GLAUCOMA N FOOT PROBLEM N DIVERTICULITIS N CHICKENPOX N SLEEP APNEA N ALLERGIES/HAYFEVER Y INFECTIOUS DISEASE N HEART ARRHYTHMIA N PROSTATE N INSOMNIA Y HIGH CHOLESTEROL / HYPERLIPIDEMIA Y HYPERTHYROIDISM N EYE PROBLEMS N EDEMA N CHRONIC PAIN SYNDROME N HYPOTHYROIDISM N CAROTID BLOCKAGE N CONSTIPATION N BACK / NECK PROBLEMS N HAVE YOU BEEN HOSPITALIZED OR SEEN IN [facility] IN THE PAST YEAR ? Y ATHEROSCLEROSIS N BREAST PROBLEMS N DIALYSIS N ECZEMA N OSTEOPOROSIS N ARTHRITIS N APPENDICITIS N DIABETES, TYPE Y BAD TEETH N ENT N HEARTBURN / REFLUX N AUTISM SPECTRUM DISORDER (ASD) N HEPATITIS / LIVER DISEASE N GOUT N SLEEP DISORDER N ALZHEIMER'S DISEASE N Brain Problems N HERPES N DEMENTIA N HEADACHES/MIGRAINES N SEIZURES/EPILEPSY N VASCULAR DISEASE N PACEMAKER N Blood Disorder N DIZZINESS N HEART DISEASE/HEART PROBLEMS N KIDNEY DISEASE N MULTIPLE SCLEROSIS N CARDIAC ARRHYTHMIA N CANCER: SPECIFY N ATRIAL FIBRILLATION N Gall Stones N PULMONARY EMBOLISM N AUTOIMMUNE DISEASE N Gynecological HistoryNo gynecological history recorded. Obstetrics History GPAL:G 0 P 0 0 0 0 Immunizations Vaccine Type Date Status Note Provider Nam e and Address Organization Details Recorded Time COVID-19, mRNA, LNP-S, PF, 30 mcg/0.3 mL dose 1 completed Not Available [facility] 07/19/2023 07:49:06 COVID-19, mRNA, LNP-S, PF, 30 mcg/0.3 mL dose 1 completed Not Available [facility] 07/19/2023 07:49:05 Influenza, split virus, quadrivalent, preservative 9 completed Not Available [facility] 07/19/2023 07:49:05 Influenza, split virus, quadrivalent, preservative 8 completed Not Available [facility] 07/19/2023 07:49:05 Influenza, split virus, quadrivalent, preservative 7 completed Not Available [facility] 07/19/2023 07:49:05 Influenza, split virus, trivalent, preservative 1 completed Not Available [facility] 07/19/2023 07:49:06 Tdap 9 completed Not Available [facility] 07/19/2023 07:49:06 Past Encounters Encounter ID Performer Location Encounter Start Date Encounter Closed Date Diagnosis/Indication Diagnosis SNOMED-CT Code Diagnosis ICD10 Code Diagnosis Note [id number] Dante Celis MD [facility] Internal Med [facility] 15 2043 [facility] [address] [address] 11/06/2021 00:00:00 11/12/2021 14:47:49 [id number] Dante Celis MD [facility] Med [facility] 15 [address]43 [facility] [address] [address] 12/25/2021 00:00:00 12/25/2021 10:44:59 [id number] Dante Celis MD [facility] Internal Med [facility] [address] [place] [address] 1 04/30/2022 00:00:00 05/01/2022 22:59:20 [id number] Dante Celis MD [facility] Internal Med [facility] [address] [place], [place] [address]e., [place] [address] 1 07/11/2022 00:00:00 07/16/2022 16:57:39 [id number] Dante Celis MD [facility] Internal Med [facility] [address] [place], [place] [address]., [place] [address] 1 08/08/2022 00:00:00 08/09/2022 08:48:23 [id number] Dante Celis MD [facility] Internal Med [facility] [address] [place], [place] [address]., [place] [address] 1 09/03/2022 00:00:00 09/03/2022 10:58:56 [id number] Dante Celis MD [facility] Internal Med [facility] [address] [place], [place] [address]., [address] [address] 11/19/2022 11:22:32 11/19/2022 12:49:55 Pre-surgery testing 036946765 Z01.89 Dyslipidemia 602710674 E 78.5 Anxiety 14825450 F41.9 Essential hypertension 86880142 I10 [id number] Dante Celis MD [facility] Internal Med [facility] [address] [place], [place] [address]., [address] [address] 01/23/2023 10:45:32 01/23/2023 11:51:51 Dyslipidemia 839590005 E78.5 Essential hypertension 59349646 I10 Anxiety 20333273 F41.9 Type 2 dwain betes mellitus 22132860 E11.9 [id number] Dante Celis MD [facility] Internal Med [facility] [address] [place] [address] Ave[address] [address] 07/17/2023 10:51:55 07/17/2023 12:44:13 Fatigue 31093162 R53.83 Essential hypertension 25240800 I10 Type 2 dwain betes mellitus 03991274 E11.9 Renewal of prescription 050482713 Z76.0 Anxiety 32394587 F41.9 Dyslipidemia 136278004 E 78.5 [id number] Wayne Capellan DPM [facility] [address] [place] [address] 10/12/2024 11:11:47 10/14/2024 08:06:45 Type 2 diabetes mellitus 81169740 E11.9 Continue diabetic control per PCP recommenda tionsconti nue supportive shoe gearFollow -up 1 year Hammer toe 755162981 M20 .42 M20.41 educated on conditionP atient elects to continue with conservati ve optionsWil l continue monitor Health Concerns Section Related Observation LastModified by Organization Detai ls LastModified Time None Recorded Concern Status LastModified by Organization Details LastModified Time None Recorded Advance Directives Directive N: Payers Encounter Date Sequence Insurance Name Policy Number Policy Petty Covered Member ID Petty Member ID Guarantor Name 11/19/2022 1 [place] [id number] Shaun Karol Rodolfo [id number] Mariola Reynolds 01/23/2023 1 [place] [id number] Shaun Karol Rodolfo [id number] Mariola Karol Rodolfo 07/17/2023 1 [place] [id number] Shaun Reynolds [id number] Mariola Reynolds 10/12/2024 1 [place] [id number] Shaun Karol Rodolfo [id number] Mariola Karol Rodolfo Notes Date Note Type Note Provider Name and Address Organization Details Recorded Time 11/19/2022 text/html I have orthopedi c surgery Dante Celis MD [address] [place] [address], [place], [address], [facility] [employer] 12/09/2022 18:30:16 01/23/2023 text/html Hypertension no headache or dizziness. Diabetes fine since her gastric bypass. Dyslipidemia Try to follow low-fat diet. Anxiety is up a little bit good she has had problems with her hip placement. Hip pain seeing her orthopedist would like parking placard she is having some struggle still Dante Celis MD [address], [place], [address], [facility] 01/23/2023 11:52:12 07/17/2023 text/html Hypertension no headache or dizziness. Diabetes fine since her gastric bypass. Dyslipidemia Try to follow low-fat diet. Anxiety is up a little bit good she has had problems with her hip placement. Hip pain seeing her orthopedist would like parking placard she is having some struggle still Dante Celis MD [address], [place], [address], [facility] 07/19/2023 19:29:41 10/12/2024 text/html . Patient is a 54-year-old female with diabetes she presents to the office for diabetic foot care. Patient overall is doing well she denies any open wounds, foot pain, numbness and tingling in the feet. Patient states she does not have any difficulty with her daily activities. Patient does not have any intermittent claudication with walking or rest pain. Patient states she does have some mild hammertoes she denies any pain to these toes. Patient denies any calluses to the toes. Wayne Capellan DPM [address], [place], [address], [facility] 10/12/2024 12:17:08 OBGyn Episode No OBEpisode recorded.
--- OUTSIDE RECORDS SUMMARY | 2024-12-22 09:05 | XMS_ITS | Patient Health Record ---
Author Organization [facility] Address [address] [place] [address] [place] Brown [address] Care Team Providers Care Director Of Services Name Role Phone DANTE PIÑA MD Primary Care Provider Mauria Karthik Boudreaux Unavailable [phone] GUILLAUME PIÑA JASON Unavailable Unavailable ALLERGIES No Known Allergies REASON FOR REFERRAL No Information MEDICATIONS Medication SIG (Take, Route, Frequency, Duration) Notes Start Date End Date Status Celecoxib 100 MG 1 capsule with food Orally Once a day for 30 day(s) 07/19/2022 Active Norvasc 10 MG 1 tablet Orally Once a day for 30 day(s) Active Venlafaxine HCl 75 MG 1 tablet with food Orally Once a day for 30 day(s) Active Metoprolol Tartrate 25 MG 1 tablet with food Orally Twice a day for 30 day(s) Active tiZANidine HCl 2 MG 1 tablet as needed O rally 2 x day for muscle spasm for 30 days 09/17/2022 Active PROBLEMS Problem Type ICD Code Onset Dates Problem Status W/U Status Risk SNOMED Code Notes Problem Morbid (severe) obesity due to excess calories (E66.01) Active confirmed Morbid obesity (disorder) (340508148) Problem Lesion of sciatic nerve, right lower limb (G57.01) Active confirmed Sciatic nerve lesion (318794302) Problem Unilateral primary osteoarthritis, left hip (M16.12) Active confirmed Localized, primary osteoarthritis of the pelvic region and thigh (918150089) Problem Pain in left hip (M25.552) Active confirmed Pain of left hi p joint (finding) (640810247499027) Problem Spondylosis without myelopathy or radiculopathy, lumbar region (M47.816) Active confirmed Lumbosacral spondylosis without myelopathy (62600907) Problem Spondylosis without myelopathy or radiculopathy, lumbosacral region (M47.817) Active confirmed Lumbosacral spondylosis without myelopathy (disorder) (23505874) Problem Other intervertebral disc degeneration, lumbar region (M51.36) Active confirmed Degeneration of lumbar intervertebral disc (12177930) Problem Other intervertebral disc degeneration, lumbosacral region (M51.37) Active confirmed Degeneration of lumbosacral intervertebral disc (97276562) Problem Radiculopathy, lumbar region (M54.16) Active confirmed Lumbar radiculopathy (837078756) Problem Radiculopathy, lumbosacral region (M54.17) Active confirmed Lumbosacral radiculopathy (9127462) Problem Sciatica, unspecified side (M54.30) Active confirmed Sciatica (22235887) Problem Sciatica, right side (M54.31) Active confirmed Right side sciatica (789926304042240) Problem Sciatica, left side (M54.32) Active confirmed Left side sciatica (240180696608553) Problem Trochanteric bursitis, left hip (M70.62) Active confirmed Trochanteric bursitis of left hip (000850654451482) Problem Osseous stenosis of neural canal of lumbar region (M99.33) Active confirmed Spinal stenosis of lumbar region (66431967) PLAN OF TREATMENT Pending Test Test Name Order Date MRI : Lumbar Spine without contrast (721 48) 07/19/2022 Insurance Providers Payer Name Payer Address Payer Phone Subscriber Number Group Number Insured Name Patient Relationship to Insured Coverage Start Date Coverage End Date [facility] [address] [place] [address] [phone] [id number] MACKENZIE HERNANDEZ Self - patient is the insured MEDICAL (GENERAL) HISTORY Medical History History ICD Code Diabetes type 2 Anxiety Insomnia Hypertension Depression Surgical History Surgery Date(Month/Year) Gastric bypass 2010
--- OUTSIDE RECORDS SUMMARY | 2024-12-22 09:06 | XMS_ITS | Data Portability ---
[facility] [address] [place] [address] Care Team Providers Care Elevator Installer Name Role Phone DANTE CELIS Primary Care Provider Assessment Encounter Date Assessment Date Assessment LastModified by Organization Details LastModified Time 03/13/2024 03/13/2024 healthy lifestyle care instructions given. Blood work has been ordered. Ozempic. Celebrex. Follow up in 3 months. She will monitor blood pressure at home also I think that as we get some of this weight off that should help as well [email or web address] Not available 03/13/2024 15:02:45 06/16/2024 06/16/2024 we will continue current therapy we will follow up with me in 4 months' time all questions have been answered [email or web address] Not available 06/21/2024 13:56:51 09/18/2024 09/18/2024 continue current therapy check blood work some Zofran to use for nausea secondary to GLP 1 it is mild and she only gets it the 1st day or 2 after her injection if it becomes severe she will let me know flu shot Prevnar 20 blood work follow up in 4 months. Mammogram. Podiatry for foot exam [email or web address] Not available 09/19/2024 21:17:38 Plan of Treatment Reminders Order Date Submit Date Provider Last Modified By Organization Details Last Modified Time Details Appointments ANY 15 2024 09:30A M Dante Celis MD Not available Not available Not available Lab albumi n/crea binuine , mass ratio, urine 2024 025 [facility], [address] [facility] [facility] [address] [facility], [address], [place], [address], 09/19/2024 10:19:43 HbA1c (hemog lobin A1c), blood 2024 025 [facility], [address], [address], [place], [address], 09/19/2024 10:19:47 lipid panel, serum 2024 025 [facility], [address], [address], [place], [address], 09/19/2024 10:19:44 CBC w/ auto diff 2024 025 [facility], [address], [address], [place], [address], 09/19/2024 10:19:48 CMP, serum or plasma 2024 025 [facility], [address], [address], [place], [address], 09/19/2024 10:19:45 HbA1c (hemog lobin A1c), blood 2023 024 [facility], [address], [address], [place], [address], 03/14/2024 08:27:40 CMP, serum or plasma 2023 024 [facility], [address], [address], [place], [address], 03/14/2024 08:27:39 lipid panel, serum 2023 024 [facility], [address], [address], [place], [address], 03/14/2024 08:27:39 CBC w/ auto diff 2023 024 [facility], [address] [place] [address], [address], [place], [address], 03/14/2024 08:27:41 T4, free, serum 2023 024 [facility], [address] [place] [address], [address], [place], [address], 03/14/2024 08:27:42 TSH, ultra- sensit kolby, serum 2023 024 [facility], [address] [place] [address], [address], [place], [address], 03/14/2024 08:27:40 T3, free, serum or plasma 2023 024 [facility], [address] [place] [address], [address], [place], [address], 03/14/2024 08:27:41 Referral podiat rist referr al 2024 025 [facility], [address] [facility], [place], [address], 12/08/2024 15:21:44 Procedures None record ed. Surgeries None record ed. Imaging MAMMO, screen ing, digita l, bilate ral [address] [facility] (Imaging), [address] [facility] [address], [place], [address], 12/10/2024 15:01:20 Medication Orders Ozempi c 0.25 mg or 0.5 mg (2 mg/3 mL) subcut aneous pen inject or 2023 024 [facility][id number], [address], [place], [address], 10/15/2024 12:10:57 Celebr ex 200 mg capsul e 2023 024 [email or web address] [id number], [address], [place], [address], 03/13/2024 11:11:43 Patient TargetsNo targets recorded. Patient Instructions Encounter Date Encounter Id Patient Instructions Last Modified By Organization Details Last Modified Time 03/13/2024 [id number] A healthy lifestyle: care instructions [email or web address] Not available 03/13/2024 11:08:36 06/16/2024 [id number] A healthy lifestyle: care instructions [email or web address] Not available 06/21/2024 13:57:09 Reason for Referral Appointment Specialist Referral for Type 2 diabetes mellitus Referring Physician: Dante Celis, Internal Medicine, Encounter Date: 09/18/2024 Results Created Date Observation Date Name Description Value Unit Range Abnormal Flag Note LastModifiedBy Organization Detail LastModifiedTime 03/13/20 24 03/14/2024 LIPID PANEL cholesterol, total 218 mg/dL 100-19 9 above high normal Not Available [facility] ([facility]) [address] [facility], [place], [address], 03/14/2024 08:27:38 03/13/20 24 03/14/2024 LIPID PANEL triglyceride s 146 mg/dL 0-149 Not Available [facility] ([facility]) [address] [place], [address], 03/14/2024 08:27:38 03/13/20 24 03/14/2024 LIPID PANEL HDL cholesterol 52 mg/dL >39 Not Available [facility] ([facility]) [address] [place], [address], 03/14/2024 08:27:38 03/13/20 24 03/14/2024 LIPID PANEL VLDL cholesterol jorge luis 26 mg/dL 5-40 Not Available [facility] ([facility]) [address] [place], [address], 03/14/2024 08:27:38 03/13/20 24 03/14/2024 LIPID PANEL LDL chol calc ([facility]) 140 mg/dL 0-99 above high normal Not Available [facility] ([facility]) [address] [facility], [place], [address], 03/14/2024 08:27:38 03/13/20 24 03/14/2024 COMP. METAB OLIC PANEL (14) glucose 94 mg/dL 70-99 Not Available [facility] ([facility]) [address] [facility], [place], [address], 03/14/2024 08:27:39 03/13/20 24 03/14/2024 COMP. METAB OLIC PANEL (14) BUN 10 mg/dL 6-24 Not Available [facility] ([facility]) [address] [place], [address], 03/14/2024 08:27:39 03/13/20 24 03/14/2024 COMP. METAB OLIC PANEL (14) creatinine 0.63 mg/dL 0.57-1 .00 Not Available [facility] ([facility]) [address] [facility], [place], [address], 03/14/2024 08:27:39 03/13/20 24 03/14/2024 COMP. METAB OLIC PANEL (14) eGFR 105 mL/mi n/1.7 3 >59 Not Available [facility] ([facility]) [address] [place], [address], 03/14/2024 08:27:39 03/13/20 24 03/14/2024 COMP. METAB OLIC PANEL (14) BUN/creatini ne ratio 16 9-23 Not Available [facility] ([facility]) [address] [place], [address], 03/14/2024 08:27:39 03/13/20 24 03/14/2024 COMP. METAB OLIC PANEL (14) sodium 141 mmol/ L 134-14 4 Not Available [facility] ([facility]) [address] [facility] [place], [address], 03/14/2024 08:27:39 03/13/20 24 03/14/2024 COMP. METAB OLIC PANEL (14) potassium 5.4 mmol/ L 3.5-5. 2 above high normal Not Available [facility] ([facility]) [address] [facility] [place], [address], 03/14/2024 08:27:39 03/13/20 24 03/14/2024 COMP. METAB OLIC PANEL (14) chloride 102 mmol/ L 96-106 Not Available [facility] ([facility]) [address] [facility] [place], [address], 03/14/2024 08:27:39 03/13/20 24 03/14/2024 COMP. METAB OLIC PANEL (14) carbon dioxide, total 25 mmol/ L 20-29 Not Available [facility] ([facility]) [address] [facility] [place], [address], 03/14/2024 08:27:39 03/13/20 24 03/14/2024 COMP. METAB OLIC PANEL (14) calcium 9.2 mg/dL 8.7-10 .2 Not Available [facility] ([facility]) [address] [facility] [place], [address], 03/14/2024 08:27:39 03/13/20 24 03/14/2024 COMP. METAB OLIC PANEL (14) protein, total 7.1 g/dL 6.0-8. 5 Not Available [facility] ([facility]) [address] [facility] [place], [address], 03/14/2024 08:27:39 03/13/20 24 03/14/2024 COMP. METAB OLIC PANEL (14) albumin 4.1 g/dL 3.8-4. 9 Not Available [facility] ([facility]) [address] [facility] [place], [address], 03/14/2024 08:27:39 03/13/20 24 03/14/2024 COMP. METAB OLIC PANEL (14) globulin, total 3.0 g/dL 1.5-4. 5 Not Available [facility] ([facility]) [address] [facility] [place], [address], 03/14/2024 08:27:39 03/13/20 24 03/14/2024 COMP. METAB OLIC PANEL (14) bilirubin, total 0.3 mg/dL 0.0-1. 2 Not Available [facility] ([facility]) [address] [facility] [place], [address], 03/14/2024 08:27:39 03/13/20 24 03/14/2024 COMP. METAB OLIC PANEL (14) alkaline phosphatase 121 IU/L 44-121 Not Available [facility]) [address] [facility] [place], [address], 03/14/2024 08:27:39 03/13/20 24 03/14/2024 COMP. METAB OLIC PANEL (14) AST (SGOT) 27 IU/L 0-40 Not Available [facility] ([facility]) [address] [facility] [place], [address], 03/14/2024 08:27:39 03/13/20 24 03/14/2024 COMP. METAB OLIC PANEL (14) ALT (SGPT) 21 IU/L 0-32 Not Available [facility] ([facility]) [address] [place], [address], 03/14/2024 08:27:39 03/13/20 24 03/14/2024 HEMOG LOBIN A1C hemoglobin A1C 5.9 % 4.8-5. 6 above high normal Predi abete s: 5.7 - 6.4 Diabe silverio: >6.4 Glyce abner contr ol for adult s with diabe silverio: <7.0 Not Available [facility] ([facility]) [address] [facility], [place], [address], 03/14/2024 08:27:40 03/13/20 24 03/14/2024 TSH TSH 3.170 uIU/m L 0.450- 4.500 Not Available [facility] ([facility]) [address] [facility], [place], [address], 03/14/2024 08:27:40 03/13/20 24 03/14/2024 CBC WITH DIFFE RENTI AL/PL ATELE T WBC 8.2 x10e3 /uL 3.4-10 .8 Not Available [facility] ([facility]) [address] [facility], [place], [address], 03/14/2024 08:27:41 03/13/20 24 03/14/2024 CBC WITH DIFFE RENTI AL/PL ATELE T RBC 4.78 x10e6 /uL 3.77-5 .28 Not Available [facility] ([facility]) [address] [facility], [place], [address], 03/14/2024 08:27:41 03/13/20 24 03/14/2024 CBC WITH DIFFE RENTI AL/PL ATELE T hemoglobin 13.7 g/dL 11.1-1 5.9 Not Available [facility] ([facility]) [address] [place], [address], 03/14/2024 08:27:41 03/13/20 24 03/14/2024 CBC WITH DIFFE RENTI AL/PL ATELE T hematocrit 42.9 % 34.0-4 6.6 Not Available [facility] ([facility]) [address] [facility], [place], [address], 03/14/2024 08:27:41 03/13/20 24 03/14/2024 CBC WITH DIFFE RENTI AL/PL ATELE T MCV 90 fL 79-97 Not Available [facility] ([facility]) [address] [facility], [place], [address], 03/14/2024 08:27:41 03/13/20 24 03/14/2024 CBC WITH DIFFE RENTI AL/PL ATELE T MCH 28.7 pg 26.6-3 3.0 Not Available [facility] ([facility]) [address] [facility], [place], [address], 03/14/2024 08:27:41 03/13/20 24 03/14/2024 CBC WITH DIFFE RENTI AL/PL ATELE T MCHC 31.9 g/dL 31.5-3 5.7 Not Available [facility] ([facility]) [address] [facility], [place], [address], 03/14/2024 08:27:41 03/13/20 24 03/14/2024 CBC WITH DIFFE RENTI AL/PL ATELE T RDW 13.4 % 11.7-1 5.4 Not Available [facility] ([facility]) [address] [facility], [place], [address], 03/14/2024 08:27:41 03/13/20 24 03/14/2024 CBC WITH DIFFE RENTI AL/PL ATELE T platelets 316 x10e3 /uL 150-45 0 Not Available [facility] ([facility]) [address] [facility], [place], [address], 03/14/2024 08:27:41 03/13/20 24 03/14/2024 CBC WITH DIFFE RENTI AL/PL ATELE T neutrophils 53 % notest ab. Not Available [facility] ([facility]) [address] [facility], [place], [address], 03/14/2024 08:27:41 03/13/20 24 03/14/2024 CBC WITH DIFFE RENTI AL/PL ATELE T lymphs 37 % notest ab. Not Available [facility] ([facility]) [address] [facility], [place], [address], 03/14/2024 08:27:41 03/13/20 24 03/14/2024 CBC WITH DIFFE RENTI AL/PL ATELE T monocytes 7 % notest ab. Not Available [facility] ([facility]) [address] [facility], [place], [address], 03/14/2024 08:27:41 03/13/20 24 03/14/2024 CBC WITH DIFFE RENTI AL/PL ATELE T eos 3 % notest ab. Not Available [facility] ([facility]) [address] [facility], [place], [address], 03/14/2024 08:27:41 03/13/20 24 03/14/2024 CBC WITH DIFFE RENTI AL/PL ATELE T basos 0 % notest ab. Not Available [facility] ([facility]) [address] [facility], [place], [address], 03/14/2024 08:27:41 03/13/20 24 03/14/2024 CBC WITH DIFFE RENTI AL/PL ATELE T neutrophils (absolute) 4.3 x10e3 /uL 1.4-7. 0 Not Available [facility] ([facility]) [address] [facility], [place], [address], 03/14/2024 08:27:41 03/13/20 24 03/14/2024 CBC WITH DIFFE RENTI AL/PL ATELE T lymphs (absolute) 3.0 x10e3 /uL 0.7-3. 1 Not Available [facility] ([facility]) [address] [facility], [place], [address], 03/14/2024 08:27:41 03/13/20 24 03/14/2024 CBC WITH DIFFE RENTI AL/PL ATELE T monocytes(ab solute) 0.6 x10e3 /uL 0.1-0. 9 Not Available [facility] ([facility]) [address] [facility] [place], [address], 03/14/2024 08:27:41 03/13/20 24 03/14/2024 CBC WITH DIFFE RENTI AL/PL ATELE T eos (absolute) 0.2 x10e3 /uL 0.0-0. 4 Not Available [facility] ([facility]) [address] [place], [address], 03/14/2024 08:27:41 03/13/20 24 03/14/2024 CBC WITH DIFFE RENTI AL/PL ATELE T baso (absolute) 0.0 x10e3 /uL 0.0-0. 2 Not Available [facility] ([facility]) [address] [facility], [place], [address], 03/14/2024 08:27:41 03/13/20 24 03/14/2024 CBC WITH DIFFE RENTI AL/PL ATELE T immature granulocytes 0 % notest ab. Not Available [facility] ([facility]) [address] [facility] [place], [address], 03/14/2024 08:27:41 03/13/20 24 03/14/2024 CBC WITH DIFFE RENTI AL/PL ATELE T immature grans (abs) 0.0 x10e3 /uL 0.0-0. 1 Not Available [facility] ([facility]) [address] [place], [address], 03/14/2024 08:27:41 03/13/20 24 03/14/2024 TRIIO DOTHY PAPI E (T3), FREE triiodothyro nine (T3), free 2.8 pg/mL 2.0-4. 4 Not Available [facility] ([facility]) [address] [facility], [place], [address], 03/14/2024 08:27:41 03/13/20 24 03/14/2024 T4,FR EE(DI RECT) T4,free(dire ct) 1.05 NG/dL 0.82-1 .77 Not Available [facility] ([facility]) [address] [place], [address], 03/14/2024 08:27:42 09/18/19 25 09/19/2024 ALBUM IN/CR EATIN INE RATIO ,URIN E creatinine, urine 102.6 mg/dL notest ab. Not Available [facility] ([facility]) [address] [place], [address], 09/19/2024 10:19:43 09/18/19 25 09/19/2024 ALBUM IN/CR EATIN INE RATIO ,URIN E albumin, urine 3.6 ug/mL notest ab. Not Available [facility] ([facility]) [address] [place], [address], 09/19/2024 10:19:43 09/18/19 25 09/19/2024 ALBUM IN/CR EATIN INE RATIO ,URIN E alb/creat ratio 4 mg/g_ creat 0-29 Mable l: 0 - 29 Moder ately incre ased: 30 - 300 Sever eduardo incre ased: >300 Not Available [facility] ([facility]) [address] [place], [address], 09/19/2024 10:19:43 09/18/19 25 09/19/2024 LIPID PANEL cholesterol, total 189 mg/dL 100-19 9 Not Available [facility] ([facility]) [address] [place], [address], 09/19/2024 10:19:44 09/18/19 25 09/19/2024 LIPID PANEL triglyceride s 104 mg/dL 0-149 Not Available [facility] ([facility]) [address] [place], [address], 09/19/2024 10:19:44 09/18/19 25 09/19/2024 LIPID PANEL HDL cholesterol 53 mg/dL >39 Not Available [facility] ([facility]) [address] [place], [address], 09/19/2024 10:19:44 09/18/19 25 09/19/2024 LIPID PANEL VLDL cholesterol jorge lius 19 mg/dL 5-40 Not Available [facility] ([facility]) [address] [place], [address], 09/19/2024 10:19:44 09/18/19 25 09/19/2024 LIPID PANEL LDL chol calc ([facility]) 117 mg/dL 0-99 above high normal Not Available [facility] ([facility]) [address] [place], [address], 09/19/2024 10:19:44 09/18/19 25 09/19/2024 COMP. METAB OLIC PANEL (14) glucose 82 mg/dL 70-99 Not Available [facility] ([facility]) [address] [place], [address], 09/19/2024 10:19:45 09/18/19 25 09/19/2024 COMP. METAB OLIC PANEL (14) BUN 11 mg/dL 6-24 Not Available [facility] ([facility]) [address] [place], [address], 09/19/2024 10:19:45 09/18/19 25 09/19/2024 COMP. METAB OLIC PANEL (14) creatinine 0.69 mg/dL 0.57-1 .00 Not Available [facility] ([facility]) [address] [place], [address], 09/19/2024 10:19:45 09/18/19 25 09/19/2024 COMP. METAB OLIC PANEL (14) eGFR 102 mL/mi n/1.7 3 >59 Not Available [facility] ([facility]) [address] [place], [address], 09/19/2024 10:19:45 09/18/19 25 09/19/2024 COMP. METAB OLIC PANEL (14) BUN/creatini ne ratio 16 9-23 Not Available [facility] ([facility]) [address] [facility], [place], [address], 09/19/2024 10:19:45 09/18/19 25 09/19/2024 COMP. METAB OLIC PANEL (14) sodium 140 mmol/ L 134-14 4 Not Available [facility] ([facility]) [address] [facility], [place], [address], 09/19/2024 10:19:45 09/18/19 25 09/19/2024 COMP. METAB OLIC PANEL (14) potassium 5.1 mmol/ L 3.5-5. 2 Not Available [facility] ([facility]) [address] [facility], [place], [address], 09/19/2024 10:19:45 09/18/19 25 09/19/2024 COMP. METAB OLIC PANEL (14) chloride 100 mmol/ L 96-106 Not Available [facility] ([facility]) [address] [facility], [place], [address], 09/19/2024 10:19:45 09/18/19 25 09/19/2024 COMP. METAB OLIC PANEL (14) carbon dioxide, total 27 mmol/ L 20-29 Not Available [facility] ([facility]) [address] [facility], [place], [address], 09/19/2024 10:19:45 09/18/19 25 09/19/2024 COMP. METAB OLIC PANEL (14) calcium 9.9 mg/dL 8.7-10 .2 Not Available [facility] ([facility]) [address] [place], [address], 09/19/2024 10:19:45 09/18/19 25 09/19/2024 COMP. METAB OLIC PANEL (14) protein, total 7.0 g/dL 6.0-8. 5 Not Available [facility] ([facility]) [address] [place], [address], 09/19/2024 10:19:45 09/18/19 25 09/19/2024 COMP. METAB OLIC PANEL (14) albumin 4.3 g/dL 3.8-4. 9 Not Available [facility] ([facility]) [address] [place], [address], 09/19/2024 10:19:45 09/18/19 25 09/19/2024 COMP. METAB OLIC PANEL (14) globulin, total 2.7 g/dL 1.5-4. 5 Not Available [facility] ([facility]) [address] [place], [address], 09/19/2024 10:19:45 09/18/19 25 09/19/2024 COMP. METAB OLIC PANEL (14) bilirubin, total 0.3 mg/dL 0.0-1. 2 Not Available [facility] ([facility]) [address] [place], [address], 09/19/2024 10:19:45 09/18/19 25 09/19/2024 COMP. METAB OLIC PANEL (14) alkaline phosphatase 93 IU/L 44-121 Not Available [facility]) [address] [place], [address], 09/19/2024 10:19:45 09/18/19 25 09/19/2024 COMP. METAB OLIC PANEL (14) AST (SGOT) 21 IU/L 0-40 Not Available [facility] ([facility]) [address] [place], [address], 09/19/2024 10:19:45 09/18/19 25 09/19/2024 COMP. METAB OLIC PANEL (14) ALT (SGPT) 18 IU/L 0-32 Not Available [facility] ([facility]) [address] [facility], [place], [address], 09/19/2024 10:19:45 09/18/19 25 09/19/2024 HEMOG LOBIN A1C hemoglobin A1C 5.3 % 4.8-5. 6 Predi abete s: 5.7 - 6.4 Diabe silverio: >6.4 Glyce abner contr ol for adult s with diabe silverio: <7.0 Not Available [facility] ([facility]) [address] [facility], [place], [address], 09/19/2024 10:19:47 09/18/19 25 09/19/2024 CBC WITH DIFFE RENTI AL/PL ATELE T WBC 8.3 x10e3 /uL 3.4-10 .8 Not Available [facility] ([facility]) [address] [facility], [place], [address], 09/19/2024 10:19:48 09/18/19 25 09/19/2024 CBC WITH DIFFE RENTI AL/PL ATELE T RBC 4.94 x10e6 /uL 3.77-5 .28 Not Available [facility] ([facility]) [address] [facility], [place], [address], 09/19/2024 10:19:48 09/18/19 25 09/19/2024 CBC WITH DIFFE RENTI AL/PL ATELE T hemoglobin 14.6 g/dL 11.1-1 5.9 Not Available [facility] ([facility]) [address] [place], [address], 09/19/2024 10:19:48 09/18/19 25 09/19/2024 CBC WITH DIFFE RENTI AL/PL ATELE T hematocrit 44.8 % 34.0-4 6.6 Not Available [facility] ([facility]) [address] [place], [address], 09/19/2024 10:19:48 09/18/19 25 09/19/2024 CBC WITH DIFFE RENTI AL/PL ATELE T MCV 91 fL 79-97 Not Available [facility] ([facility]) [address] [facility], [place], [address], 09/19/2024 10:19:48 09/18/19 25 09/19/2024 CBC WITH DIFFE RENTI AL/PL ATELE T MCH 29.6 pg 26.6-3 3.0 Not Available [facility] ([facility]) [address] [place], [address], 09/19/2024 10:19:48 09/18/19 25 09/19/2024 CBC WITH DIFFE RENTI AL/PL ATELE T MCHC 32.6 g/dL 31.5-3 5.7 Not Available [facility] ([facility]) [address] [facility], [place], [address], 09/19/2024 10:19:48 09/18/19 25 09/19/2024 CBC WITH DIFFE RENTI AL/PL ATELE T RDW 12.6 % 11.7-1 5.4 Not Available [facility] ([facility]) [address] [facility], [place], [address], 09/19/2024 10:19:48 09/18/19 25 09/19/2024 CBC WITH DIFFE RENTI AL/PL ATELE T platelets 327 x10e3 /uL 150-45 0 Not Available [facility] ([facility]) [address] [place], [address], 09/19/2024 10:19:48 09/18/19 25 09/19/2024 CBC WITH DIFFE RENTI AL/PL ATELE T neutrophils 52 % notest ab. Not Available [facility] ([facility]) [address] [place], [address], 09/19/2024 10:19:48 09/18/19 25 09/19/2024 CBC WITH DIFFE RENTI AL/PL ATELE T lymphs 37 % notest ab. Not Available [facility] ([facility]) [address] [facility], [place], [address], 09/19/2024 10:19:48 09/18/19 25 09/19/2024 CBC WITH DIFFE RENTI AL/PL ATELE T monocytes 8 % notest ab. Not Available [facility] ([facility]) [address] [facility], [place], [address], 09/19/2024 10:19:48 09/18/19 25 09/19/2024 CBC WITH DIFFE RENTI AL/PL ATELE T eos 2 % notest ab. Not Available [facility] ([facility]) [address] [facility], [place], [address], 09/19/2024 10:19:48 09/18/19 25 09/19/2024 CBC WITH DIFFE RENTI AL/PL ATELE T basos 1 % notest ab. Not Available [facility] ([facility]) [address] [facility], [place], [address], 09/19/2024 10:19:48 09/18/19 25 09/19/2024 CBC WITH DIFFE RENTI AL/PL ATELE T neutrophils (absolute) 4.3 x10e3 /uL 1.4-7. 0 Not Available [facility] ([facility]) [address] [facility], [place], [address], 09/19/2024 10:19:48 09/18/19 25 09/19/2024 CBC WITH DIFFE RENTI AL/PL ATELE T lymphs (absolute) 3.1 x10e3 /uL 0.7-3. 1 Not Available [facility] ([facility]) [address] [facility], [place], [address], 09/19/2024 10:19:48 09/18/19 25 09/19/2024 CBC WITH DIFFE RENTI AL/PL ATELE T monocytes(ab solute) 0.6 x10e3 /uL 0.1-0. 9 Not Available [facility] ([facility]) [address] [place], [address], 09/19/2024 10:19:48 09/18/19 25 09/19/2024 CBC WITH DIFFE RENTI AL/PL ATELE T eos (absolute) 0.2 x10e3 /uL 0.0-0. 4 Not Available [facility] ([facility]) [address] [facility], [place], [address], 09/19/2024 10:19:48 09/18/19 25 09/19/2024 CBC WITH DIFFE RENTI AL/PL ATELE T baso (absolute) 0.0 x10e3 /uL 0.0-0. 2 Not Available [facility] ([facility]) [address] [facility], [place], [address], 09/19/2024 10:19:48 09/18/19 25 09/19/2024 CBC WITH DIFFE RENTI AL/PL ATELE T immature granulocytes 0 % notest ab. Not Available [facility] ([facility]) [address] [facility], [place], [address], 09/19/2024 10:19:48 09/18/19 25 09/19/2024 CBC WITH DIFFE RENTI AL/PL ATELE T immature grans (abs) 0.0 x10e3 /uL 0.0-0. 1 Not Available [facility] ([facility]) [address] [place], [address], 09/19/2024 10:19:48 Result Notes None recorded. Problems Name Problem SNOMED Code Status Onset Date Resolution Date Notes Provider Name and Address Organization Details Recorded Time Essential hypertension 20306139 Active 2023 GASPER [place], [place] - [facility] 10:53:15 Hyperlipidemia 53140041 Active 2023 GASPER [place], [place] - [facility] 10:53:16 Type 2 diabetes mellitus 73322505 Active 2023 GASPER [place], [place] - [facility] 11:09:39 Anxiety 60407127 Active 2023 Dante Celis MD Attn: Debo henriquez,[address] [facility], [place], [address], [facility] - [facility] 4 13:55:16 Problem Notes None recorded. Procedures Surgical History Date Name Laterality Status Provider Name and Address Organization Details Recorded Time Gastric Bypass completed Nilsa Maldonado [place] - [facility] 03/13/2024 10:25:00 hysterectomy completed Nilsa Maldonado [place] - [facility] 03/13/2024 10:25:05 Imaging Results None recorded. Procedure Notes None recorded. Medical Equipment None Reported. Allergies Allergen ID Allergen Name Allergen Category Reaction Reaction Severity Criticality Documentation Date Start Date Code Code System Note Provider Name and Address Organization Details Recorded Time 333096 watermelo n preparati on food Not available Not available Not available 03/13/2024 19987 4 RxNorm GASPER [place], [place] - [facility] 10:19:55 349566 atorvasta tin medicatio n muscle cramps severe Not available 03/16/2024 92516 RxNorm GASPER [place], [place] - [facility] 17:07:12 Medications Name Sig Start Date Stop Date Status Note LastModified by Organization Details LastModified Time celecoxib 200 mg capsule TAKE 1 CAPSULE BY MOUTH EVERY DAY NEEDED FOR PAIN 2024 active Not Available Not Available Not Avai lable amoxicillin 500 mg capsule TAKE 4 CAPSULES BY MOUTH 1 HOUR PRIOR TO DENTAL APPOINTME NT 03/13 completed Not Available Not Available Not Available venlafaxine 75 mg tablet TAKE 1 TABLET BY MOUTH EVERY DAY 2024 active Not Available Not Available Not Avai lable tizanidine 2 mg tablet TAKE 1 TABLET BY MOUTH TWICE A DAY NEEDED FOR MUSCLE SPASM active Not Available Not Available No t Available atorvastati n 10 mg tablet TAKE 1 TABLET BY MOUTH EVERY DAY 03/13 completed Not Available Not Available Not Available azithromyci n 250 mg tablet TAKE 2 TABLETS BY MOUTH TODAY, THEN TAKE 1 TABLET DAILY FOR 4 DAYS DIRECTED 09/18 completed Not Available Not Available Not Available fluconazole 150 mg tablet TAKE 1 TABLET BY MOUTH active Not Available Not Available No t Available ondansetron HCl 4 mg tablet TAKE 1 TABLET NEEDED BY ORAL ROUTE IN THE MORNING FOR 10 DAYS. active Not Available Not Available No t Available acetaminoph en 300 mg-codeine 30 mg tablet TAKE 1-2 TABLETS BY MOUTH EVERY 4-6 HOURS, NO MORE THAN 10/DAY 03/13 completed Not Available Not Available Not Available amlodipine 5 mg tablet TAKE 1 TABLET BY MOUTH EVERY DAY 2024 active Not Available Not Available Not Avai lable hydrocodone 10 mg-acetamin ophen 325 mg tablet TAKE 1-2 TABLETS BY MOUTH EVERY 6-8 HOURS NEEDED. MAX 6 TABS/DAY 03/13 completed Not Available Not Available Not Available alprazolam 0.5 mg tablet TAKE 1 TABLET BY MOUTH TWICE A DAY active Not Available Not Available No t Available oxycodone-a cetaminophe n 10 mg-325 mg tablet TAKE 1-2 TABLETS BY MOUTH EVERY 6-8 HOURS NEEDED FOR 7 DAYS MAX 6 TABLETS/2 4 HOURS 03/13 completed Not Available Not Available Not Available gabapentin 100 mg capsule TAKE 1 CAPSULE BY MOUTH EVERYDAY AT BEDTIME 03/13 completed Not Available Not Available Not Available celecoxib 100 mg capsule TAKE 1 CAPSULE BY MOUTH EVERY DAY WITH FOOD FOR 30 DAYS 03/13 completed Not Available Not Available Not Available ezetimibe 10 mg tablet TAKE 1 TABLET BY MOUTH EVERY DAY 2024 active Not Available Not Available Not Avai lable metoprolol tartrate 25 mg tablet TAKE 1 TABLET BY MOUTH TWICE A DAY 2024 active Not Available Not Available Not Avai lable Ozempic 1 mg/dose (4 mg/3 mL) subcutaneou s pen injector INJECT 1 MG SUBCUTANE OUSLY WEEKLY 2024 active Not Available Not Available Not Avai lable Ozempic 2 mg/dose (8 mg/3 mL) subcutaneou s pen injector INJECT 2 MG EVERY WEEK BY SUBCUTANE OUS ROUTE. 2024 active Not Available Not Available Not Avai lable Ozempic 0.25 mg or 0.5 mg (2 mg/3 mL) subcutaneou s pen injector INJECT 0.25MG WEEKLY FOR 4WKS THEN GO TO 0.5MG WEEKLY FOR 4WKS 10/15 completed Not Available Not Available Not Available Vitals Date Recorded Body height Respiratory rate Body mass index (BMI) Body weight Oxygen saturation Oxygen saturation in Arterial blood by Pulse oximetry Heart rate Systolic blood pressure Diastolic blood pressure Provider Name and Address Organization Details Last Updated DateTime 4 180.34 cm 20 /min 40.9 kg/m2 313190. 36 g 99 % 99 % 77 /min 140 mm[Hg] 88 mm[Hg] Nilsa Maldonado MA [facility] 4 10:27:46 Date Recorded Body height Body mass index (BMI) Body weight Heart rate Oxygen saturation Oxygen saturation in Arterial blood by Pulse oximetry Systolic blood pressure Diastolic blood pressure Provider Name and Address Organization Details Last Updated DateTime 4 180.34 cm 37.8 kg/m2 631388. 61 g 77 /min 98 % 98 % 128 mm[Hg] 68 mm[Hg] Rahel Fan MA [facility] 4 10:19:05 Date Recorded Body height Body mass index (BMI) Body weight Heart rate Oxygen saturation Oxygen saturation in Arterial blood by Pulse oximetry Systolic blood pressure Diastolic blood pressure Provider Name and Address Organization Details Last Updated DateTime 5 180.34 cm 35.5 kg/m2 174029. 54 g 73 /min 95 % 95 % 130 mm[Hg] 86 mm[Hg] Jessica Landa MA [facility] 5 10:38:47 Social History Question Answer Notes LastModified by Organizat ion Details LastModified Time Tobacco Smoking Status Former Smoker quit 10 years ago Nilsa Maldonado MA [facility] 03/13/2024 10:24:12 Do You Have An Advance Directive? No Information not available 03/13/2024 Are You Blind Or Do You Have Difficulty Seeing? No Glasses Information not available 03/13/2024 What Is Your Level Of Caffeine Consumption? Occasional Coffee Information not available 03/13/2024 In The 14 Days Before Symptom Onset, Have You Had Close Contact With A Laboratory-confir med COVID-19 While That Case Was Ill? No Information not available 03/13/2024 In The 14 Days Before Symptom Onset, Have You Had Close Contact With A Person Who Is Under Investigation For COVID-19 While That Person Was Ill? No Information not available 03/13/2024 Have You Been To An Area Known To Be High Risk For COVID-19? No Information not available 03/13/2024 Are You Deaf Or Do You Have Serious Difficulty Hearing? No Pt, States That She Does Get Clogged Ears Information not available 03/13/2024 What Type Of Diet Are You Following? REGULAR Information not available 03/13/2024 Are There Any Guns Present In Your Home? No Information not available 03/13/2024 What Was The Date Of Your Most Recent Tobacco Screening? 09/18/2024 Information not available 09/18/2024 What Is Your Current Pack Years? 10-19packyear s Information not available 03/13/2024 What Is Your Relationship Status? Information not available 06/16/2024 Do You Use Your Seat Belt Or Car Seat Routinely? Yes Information not available 03/13/2024 Do You Have Smoke And Carbon Monoxide Detectors In Your Home? Yes Information not available 03/13/2024 How Much Tobacco Do You Smoke? No Information not available 03/13/2024 Do You Use Sunscreen Routinely? Yes Information not available 03/13/2024 Has Tobacco Cessation Counseling Been Provided? No Information not available 06/16/2024 On What Date Was Tobacco Cessation Counseling Provided? 09/18/2024 Information not available 09/18/2024 Sex: Female Functional Status Question Answer Note LastModified by Organizat ion Details LastModified Time Do you use any illicit or recreational drugs? No Information not available 03/13/2024 What is your level of alcohol consumption? Occasional rare Information not available 03/13/2024 Are you currently employed? Yes Information not available 06/16/2024 Are you able to care for yourself? Yes Information n ot available 03/13/2024 What is your exercise level? None Information not available 03/13/2024 Mental Status Question Answer Note LastModified by Organization D etails LastModified Time Do you feel stressed (tense, restless, nervous, or anxious, or unable to sleep at night)? [id number] Information not available 03/13/2024 Family History Relationship Description Onset Age of this Age Resolved Age Notes LastModified by Organization Details LastModified Time Mother Hypertensive disorder tcarterma Not available 2023 10:22:42 Mother Hypercholest erolemia tcarterma Not available 2023 10:23:26 Father Hypertensive disorder tcarterma Not available 2023 10:22:42 Father Diabetes mellitus tcarterma Not available 2023 10:22:52 Father Hypercholest erolemia tcarterma Not available 2023 10:23:26 Son Hypertensive disorder tcarterma Not available 2023 10:23:19 Medical History Condition Response High Blood Pressure Y High Cholesterol Y Gynecological History Statement/Question Response Menses Monthly N Current Control Method Other Obstetrics History GPAL:G 3 P 3 0 0 0 Type Value Full Term 3 Induced 0 Spontaneous 0 Premature 0 Total 3 Immunizations Vaccine Type Date Status Note Provider Nam e and Address Organization Details Recorded Time Influenza, split virus, quadrivalent, preservative 9 completed G[place], [place] - [facility] 09/18/2024 10:34:46 Influenza, split virus, quadrivalent, preservative 7 completed [place] [facility] 09/18/2024 10:34:46 Influenza, split virus, quadrivalent, preservative 8 [place] [facility] 09/18/2024 10:34:46 COVID-19, mRNA, LNP-S, PF, 30 mcg/0.3 mL dose 1 completed [place] [facility] 09/18/2024 10:34:46 COVID-19, mRNA, LNP-S, PF, 30 mcg/0.3 mL dose 1 completed Jessica Landa [place], [place] [facility] 09/18/2024 10:34:46 Tdap 9 completed Jessica L[place] [facility] 09/18/2024 10:34:46 Influenza, split virus, quadrivalent, PF 1 completed Jessica L[place] [facility] 09/18/2024 10:34:46 Influenza, split virus, trivalent, PF 5 completed Dante Celis MD Attn: Accounting,[address] [place], [address], [place] [facility] 09/19/2024 21:15:54 Pneumococcal conjugate PCV20, polysaccharide PYS125 conjugate, adjuvant, PF 5 completed Dante Celis MD Attn: Accounting,[address] [place], [address], [place] [facility] 09/19/2024 21:15:54 Past Encounters Encounter ID Performer Location Encounter Start Date Encounter Closed Date Diagnosis/Indication Diagnosis SNOMED-CT Code Diagnosis ICD10 Code Diagnosis Note [id number] Dante Celis MD [facility] (Adult Med) [address] [place] [phone] 03/13/2024 10:09:38 03/13/2024 10:48:55 Obesity 839927360 E66.8 Essential hypertension 17257523 I10 Hyperlipidemia 53106996 E78.5 Type 2 dwain betes mellitus 86686487 E11.9 Pain of bi lateral hip joints 2065889379 3135158 M25.551 M25.070 [id number] Dante Celis MD [facility] (Adult Med) [address] [place] [address] 06/16/2024 09:56:10 06/16/2024 11:32:07 Obesity 242337871 E66.9 Essential hypertension 37478183 I10 Hyperlipidemia 63329741 E78.5 Type 2 dwain betes mellitus 84947575 E11.9 Anxiety 98762095 F41.9 [id number] Dante Celis MD [facility] (Adult Med) [address] [place] [address] 09/18/2024 10:14:33 09/18/2024 11:50:48 Essential hypertension 70588986 I10 Hyperlipidemia 89053173 E78.5 Type 2 dwain betes mellitus 69459046 E11.9 Screening mammography 24 239630 Z12.31 Administra tion of influenza vaccine 15502868 Z23 Administra tion of pneumococcal vaccine 23463846 Z23 Anxiety 55295178 F41.9 Health Concerns Section Related Observation LastModified by Organization Detai ls LastModified Time None Recorded Concern Status LastModified by Organization Details LastModified Time None Recorded Advance Directives Directive N: Payers Encounter Date Sequence Insurance Name Policy Number Policy Petty Covered Member ID Petty Member ID Guarantor Name 03/13/2024 1 [place] Mariola Reynolds [id number] Mariola Reynolds 06/16/2024 1 [place] Mariola Reynolds [id number] Mariola Reynolds 09/18/2024 1 [place] Mariola Reynolds [id number] Mariola Reynolds Notes Date Note Type Note Provider Name and Address Organization Details Recorded Time 03/13/2024 text/html still needs a li ttle bit more weight loss. Hypertension no headache or dizziness. Dyslipidemia does try to follow a low-fat diet. Diabetes status post bariatric surgery still having some challenges. She did have her hip replaced but occasionally uses some Celebrex Dante Celis MD Attn: Accounting, [address] [facility], [place], [address], [facility] - [facility] 03/13/2024 15:03:02 06/16/2024 text/html still needs a li ttle bit more weight loss. Hypertension no headache or dizziness. Dyslipidemia does try to follow a low-fat diet. Diabetes status post bariatric surgery still having some challenges. She did have her hip replaced but occasionally uses some Celebrex still. Dante Celis MD Attn: Accounting, [address] [facility], [place], [address], [facility] - [facility] 06/21/2024 13:57:13 09/18/2024 text/html Doing well on a GLP 1 occasionally some constipation for the 1st day or 2 after injection some nausea. Hyperlipidemia trying to watch her diet best that she can hypertension no headache or dizziness blood pressure is controlled. Blood sugars symptomatically has been doing fine there is no hypoglycemia she has not had any symptoms suggestive of uncontrolled diabetes Dante Celis MD Attn: Accounting,[address] , [place], [address], [facility] - [facility] 09/19/2024 21:17:58 OBGyn Episode No OBEpisode recorded.
== END 2024-12-22 08:56 | disposition home or self-care (01) ==
PROVIDERS: PCP Internal Medicine; Visit Provider Internal Medicine
DX: Z12.31 Encounter for screening mammogram for malignant neoplasm of breast (principal)
CPT/HCPCS: 77063; 77067